=== PATIENT | female | born 1975 | race Caucasian/White ===

== ENCOUNTER 2016-05-01 17:21 | Emergency (ER) | payer MEDICAID ==
[2016-05-01] MEDS ORDERED: BENZONATATE 100 MG CAPSULE PO STA (17:39)
[2016-05-01] MEDS ORDERED: IPRATROPIUM/ALBUTEROL 3 ML NEB INH STA (17:39)
[2016-05-01] MEDS ORDERED: predniSONE 20 MG TABLET PO STA (17:39)
[2016-05-01] MEDS ORDERED: guaiFENesin/CODEINE 5 ML UDC PO STA (17:39)
[2016-05-01] MEDS ORDERED: IPRATROPIUM/ALBUTEROL 3 ML NEB INH ONE (17:48)
[2016-05-01] MEDS ORDERED: BENZONATATE 100 MG CAPSULE PO ONE (17:51)
[2016-05-01] MEDS ORDERED: guaiFENesin/CODEINE 5 ML UDC ONE (17:51)
[2016-05-01] MEDS ORDERED: predniSONE 20 MG TABLET ONE (17:51)
== END 2016-05-01 18:53 | disposition home or self-care (01) ==
DX: J45.901 Unspecified asthma with (acute) exacerbation (principal); J06.9 Acute upper respiratory infection, unspecified; B97.89 Other viral agents as the cause of diseases classified elsewhere; R03.0 Elevated blood-pressure reading, without diagnosis of hypertension
CPT/HCPCS: 71020; 87275; 87276; 94664; 99283; 99284; A9270; J7512; J7620

== ENCOUNTER 2016-06-29 15:40 | Emergency (ER) | payer MEDICAID ==
[2016-06-29] MEDS ORDERED: CARBAMIDE PEROXIDE 6.5% OTIC DROPS EACHEAR STA (16:05)
[2016-06-29] MEDS ORDERED: CARBAMIDE PEROXIDE 6.5% OTIC DROPS ONE (16:09)
== END 2016-06-29 18:10 | disposition home or self-care (01) ==
DX: H61.23 Impacted cerumen, bilateral (principal)

== ENCOUNTER 2016-11-01 13:11 | Outpatient (CLI) | payer MEDICAID | END 2016-11-01 13:12 | disposition home or self-care (01) | LOC: SC 13:11 | PROVIDERS: ATTEND Nurse Practitioner Family | DX: G47.33 Obstructive sleep apnea (adult) (pediatric) (principal) | CPT/HCPCS: 99212; 99213 ==

== ENCOUNTER 2017-01-17 15:43 | Emergency (ER) | payer MEDICAID ==
[2017-01-17 15:49] VITALS: BP 123/80
--- NOTE | 2017-01-17 16:41 | ED Physician Documentation ---
PD HPI URI - Stated complaint Stated Complaint: SOA - Chief complaint Chief Complaint: Resp - History obtained from History obtained from: Patient - History of Present Illness Timing - onset: How many days ago (4-5) Timing duration: Days Timing details: Gradual onset, Still present (worsening, with purulent sputum and increasing cough/wheeze.) Associated symptoms: Fever, Productive cough, Dyspnea. No: Hemoptysis, Chest pain Contributing factors: COPD / asthma. No: Sick contact, Travel, Immunocompromised Similar symptoms before: Diagnosis (bronchitis and asthma.) Recently seen: Not recently seen Review of Systems Constitutional: reports: Fever, Chills, Myalgias Nose: reports: Congestion Throat: denies: Sore throat Cardiac: denies: Chest pain / pressure Respiratory: reports: Dyspnea, Cough, Wheezing GI: reports: Diarrhea (mild). denies: Nausea, Vomiting Skin: denies: Rash, Lesions Neurologic: reports: Generalized weakness. 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, Tubal ligation HEENT: Tonsil/Adenoidectomy - Present Medications Home Medications: Ambulatory Orders Medication Instructions Recorded Confirmed Lisinopril 10 mg PO DAILY 12/18/13 06/29/16 Venlafaxine [Effexor] 37.5 mg PO DAILY 12/18/13 06/29/16 traZODone [Desyrel] 12/20/15 Albuterol Sulfate [Proventil Hfa 1 - 2 puffs IH Q4H PRN #1 05/01/16 Inhaler] hfa.aer.ad Albuterol 2.5 mg INH Q4H PRN #30 neb 01/17/17 Cetirizine [ZyrTEC] 10 mg DAILY 01/17/17 01/17/17 Dexamethasone [Decadron] 4 mg PO DAILY #5 tablet 01/17/17 Doxycycline Hyclate 100 mg PO BID #14 tablet 01/17/17 Nebulizer and Compressor [Portable 1 each MC QID #1 each 01/17/17 Nebulizer System] guaiFENesin/CODEINE [Robitussin AC] 10 ml PO Q6H PRN #240 ml 01/17/17 - Allergies Allergies/Adverse Reactions: Allergies Allergy/AdvReac Type Severity Reaction Status Date / Time cefaclor [From Ceclor] Allergy Severe Edema Verified 01/17/17 15:49 methylergonovine maleate * Allergy Severe Respiratory Verified 01/17/17 15:49 [From Methergine] Latex, Natural Rubber Allergy Hives Verified 01/17/17 15:49 - Social History Does the pt smoke?: No Smoking Status: Never smoker Does the pt drink ETOH?: Yes Does the pt have substance abuse?: No - Immunizations Immunizations are current?: Yes - POLST Patient has POLST: No Results - Vitals Vitals: Oxygen O2 Source Room air - Rads (name of study) chest Radiology: Prelim report reviewed (no infiltrates nor acute process) PD MEDICAL DECISION MAKING - ED course Complexity details: re-evaluated patient (muxh improved with nebulizer. Likely viral but does have asthma and with purulent sputum, so higher suspicion for bacterial. ), considered differential, d/w patient Departure - Departure Disposition: 01 Home, Self Care Clinical Impression: Wheezing Upper respiratory tract infection Qualifiers: URI type: unspecified URI Qualified Code(s): J06.9 - Acute upper respiratory infection, unspecified Condition: Stable Record reviewed to determine appropriate education?: Yes Instructions: ED URI Viral W Wheezing Follow-Up: Azul Bullock MD [Primary Care Provider] - Prescriptions: Albuterol 2.5 mg INH Q4H PRN #30 neb PRN Reason: Wheezing Dexamethasone [Decadron] 4 mg PO DAILY #5 tablet Doxycycline Hyclate 100 mg PO BID #14 tablet guaiFENesin/CODEINE [Robitussin AC] 10 ml PO Q6H PRN #240 ml PRN Reason: Cough Nebulizer and Compressor [Portable Nebulizer System] 1 each MC QID #1 each Comments: Use your inhaler or see if he can get the nebulizer and use those 4 times a day plus extra doses if needed. He is a steroid Decadron daily for 5 more days. Add cough medicine if needed. This may still be viral but given the escalation of the symptoms now, with your history of asthma, would add some antibiotics in case of bacterial. Doxycycline twice daily for a week. Recheck if not improving over the next few days. Return sooner if worse again. Discharge Date/Time: 01/17/17 17:33
--- NOTE | 2017-01-17 16:50 | XRAY Preliminary Report ---
Exam: XR Chest 2 View PA/LAT IMPRESSION: No acute intrathoracic plain film abnormality. [facility] SITE ID: [id number]
--- NOTE | 2017-01-17 16:52 | XRAY Report ---
EXAM: CHEST RADIOGRAPHY EXAM DATE: 01/17/2017 04:17 PM. CLINICAL HISTORY: Congestion, short of breath. COMPARISON: None. TECHNIQUE: 2 views. FINDINGS: Lungs/Pleura: No focal opacities evident. No pleural effusion. No pneumothorax. Normal volumes. Mediastinum: Heart and mediastinal contours are unremarkable. Other: None. IMPRESSION: No acute intrathoracic plain film abnormality. [facility] Referring Provider Line: [phone] SITE ID: [id number]
[2017-01-17] MEDS: guaiFENesin/CODEINE 5 ML UDC PO STA (17:03)
[2017-01-17] MEDS: DEXAMETHASONE 10 MG/ML VIAL PO STA (17:03)
[2017-01-17] MEDS ORDERED: DEXAMETHASONE 10 MG/ML VIAL ONE (17:05)
[2017-01-17] MEDS ORDERED: guaiFENesin/CODEINE 5 ML UDC ONE ×2 (17:05→17:09)
[2017-01-17] MEDS ORDERED: ALBUTEROL NEB 2.5 MG/3 ML INH ONE (17:11)
[2017-01-17] MEDS: ALBUTEROL NEB 2.5 MG/3 ML INH STA (17:16)
== END 2017-01-17 17:33 | disposition home or self-care (01) ==
LOC: ED 15:43
DX: R06.2 Wheezing (principal); J06.9 Acute upper respiratory infection, unspecified
CPT/HCPCS: 71020; 94640; 94664; 99283; 99284

== ENCOUNTER 2017-07-12 13:54 | Emergency (ER) | payer MEDICAID ==
--- NOTE | 2017-07-12 15:11 | ED Physician Documentation ---
PD HPI DYSPNEA - Stated complaint Stated Complaint: DIFFICUTLY BREATHING/COUGH - Chief complaint Chief Complaint: Resp - History obtained from History obtained from: Patient - History of Present Illness Timing - onset: How many days ago (few) Timing - onset during: Light activity Timing - duration: Days (few) Timing - details: Gradual onset, Still present, Waxing and waning Inciting event(s): URI Worsened by: Exertion, Coughing Associated symptoms: Cough, Wheezing. No: Fever, Hemoptysis, Palpitations Similar symptoms before: Diagnosis (asthma, that will exacerbate with URIs.) Review of Systems Constitutional: reports: Chills, Myalgias. 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 HEENT: Tonsil/Adenoidectomy - Present Medications Home Medications: Ambulatory Orders Medication Instructions Recorded Confirmed Lisinopril 10 mg PO DAILY 12/18/13 06/29/16 Venlafaxine [Effexor] 37.5 mg PO DAILY 12/18/13 06/29/16 traZODone [Desyrel] 12/20/15 Albuterol Sulfate [Proventil Hfa 1 - 2 puffs IH Q4H PRN #1 05/01/16 Inhaler] hfa.aer.ad Albuterol 2.5 mg INH Q4H PRN #30 neb 01/17/17 Cetirizine [ZyrTEC] 10 mg DAILY 01/17/17 01/17/17 Dexamethasone [Decadron] 4 mg PO DAILY #5 tablet 01/17/17 Doxycycline Hyclate 100 mg PO BID #14 tablet 01/17/17 Nebulizer and Compressor [Portable 1 each MC QID #1 each 01/17/17 Nebulizer System] guaiFENesin/CODEINE [Robitussin AC] 10 ml PO Q6H PRN #240 ml 01/17/17 Benzonatate [Tessalon] 100 mg PO TID PRN #25 capsule 07/12/17 Dexamethasone [Decadron] 4 mg PO DAILY #5 tablet 07/12/17 Doxycycline Monohydrate 100 mg PO BID #14 tablet 07/12/17 HYDROcod/ACETAM 5/325 [[place] 5/325] 1 tab PO Q6H PRN #15 tablet 07/12/17 - Allergies Allergies/Adverse Reactions: Allergies Allergy/AdvReac Type Severity Reaction Status Date / Time cefaclor [From Ceclor] Allergy Severe Edema Verified 01/17/17 15:49 methylergonovine maleate * Allergy Severe Respiratory Verified 01/17/17 15:49 [From Methergine] Latex, Natural Rubber Allergy Hives Verified 01/17/17 15:49 - Social History Does the pt smoke?: No Smoking Status: Never smoker Does the pt drink ETOH?: Yes Does the pt have substance abuse?: No - Immunizations Immunizations are current?: Yes - POLST Patient has POLST: No PD ED PE NORMAL - Vitals Vital signs reviewed: Yes - General General: Alert and oriented X 3, No acute distress, Well developed/nourished - HEENT HEENT: Moist mucous membranes, Pharynx benign, Dentition benign - Neck Neck: Supple, no meningeal sign, No adenopathy - Cardiac Cardiac: RRR, No murmur - Respiratory Respiratory: No respiratory distress. No: Clear bilaterally (diffuse exp wheezing, mild at this time. ) - Abdomen Abdomen: Normal bowel sounds, Soft - Derm Derm: Normal color, Warm and dry - Extremities Extremities: No tenderness to palpate, Normal ROM s pain, No edema, No calf tenderness / cord - Neuro Neuro: Alert and oriented X 3, No motor deficit, Normal speech Results - Vitals Vitals: Oxygen O2 Source Room air - Labs Labs: Laboratory Tests 07/12/17 14:49 Influenza A (Rapid) Negative Influenza B (Rapid) Negative Influenza Types A,B Ag - PD MEDICAL DECISION MAKING - ED course Complexity details: reviewed old records, considered differential, d/w patient Departure - Departure Disposition: 01 Home, Self Care Clinical Impression: Upper respiratory tract infection Qualifiers: URI type: unspecified URI Qualified Code(s): J06.9 - Acute upper respiratory infection, unspecified Asthma exacerbation Qualifiers: Asthma severity: mild Asthma persistence: intermittent Qualified Code(s): J45.21 - Mild intermittent asthma with (acute) exacerbation Condition: Stable Record reviewed to determine appropriate education?: Yes Instructions: ED URI Viral W Wheezing Follow-Up: Azul Bullock MD [Primary Care Provider] - Prescriptions: Benzonatate [Tessalon] 100 mg PO TID PRN #25 capsule PRN Reason: Cough Dexamethasone [Decadron] 4 mg PO DAILY #5 tablet Doxycycline Monohydrate 100 mg PO BID #14 tablet HYDROcod/ACETAM 5/325 [[place] 5/325] 1 tab PO Q6H PRN #15 tablet PRN Reason: Pain Comments: Continue your nebulizer at home 4 times a day for the next several days and then as needed. Decadron steroid anti-inflammatory for 5 more days. Doxycycline twice daily antibiotic. This may most likely be viral but given your history of asthma and exacerbation of it, the medical literature suggests he will have more prolonged improvement with antibiotics as well. Tessalon if needed for cough. Add hydrocodone for cough and pain as needed. Recheck if not improving over the next few days. Discharge Date/Time: 07/12/17 15:41
[2017-07-12] MEDS ORDERED: DEXAMETHASONE 10 MG/ML VIAL PO STA (15:23)
[2017-07-12] MEDS ORDERED: BENZONATATE 100 MG CAPSULE PO STA (15:23)
[2017-07-12 15:42] VITALS: BP 149/96
== END 2017-07-12 15:41 | disposition home or self-care (01) ==
LOC: ED 13:54
DX: J06.9 Acute upper respiratory infection, unspecified (principal); J45.21 Mild intermittent asthma with (acute) exacerbation
CPT/HCPCS: 87275; 87276; 99283; A9270

== ENCOUNTER 2017-12-09 10:09 | Observation (INO) | payer MEDICAID ==
[2017-12-09 10:52] LABS: BASOPHILS % (AUTO) 0.4 %; EOSINOPHILS # (AUTO) 0.1 10^3/uL (0.0-0.7); EOSINOPHILS % (AUTO) 1.5 %; HGB - HEMOGLOBIN 13.6 g/dL (12.0-16.0); LYMPHOCYTES # (AUTO) 1.4 10^3/uL (1.5-3.5); LYMPHOCYTES % (AUTO) 21.1 %; MEAN CORPUSCULAR HEMOGLOBIN 27.7 pg (27.0-31.0); MEAN CORPUSCULAR HGB CONC 34.2 g/dL (32.0-36.0); MEAN PLATELET VOLUME 7.9 fL (7.9-10.8); MONOCYTES # (AUTO) 0.9 10^3/uL (0.0-1.0); MONOCYTES % (AUTO) 13.2 %; NEUTROPHILS # (AUTO) 4.3 10^3/uL (1.5-6.6); NEUTROPHILS % (AUTO) 63.8 %; PLT - PLATELET COUNT 242 10^3/uL (130-450); RED BLOOD COUNT 4.89 10^6/uL (4.20-5.40); RED CELL DISTRIBUTION WIDTH 14.3 % (12.0-15.0); WHITE BLOOD COUNT 6.7 x10^3/uL (4.8-10.8)
[2017-12-09 11:05] LABS: ALBUMIN 3.9 g/dL (3.2-5.5); ALBUMIN/GLOBULIN RATIO 1.3 (1.0-2.2); BILIRUBIN,TOTAL 0.6 mg/dL (0.2-1.0); CALCIUM 8.7 mg/dL (8.5-10.3); CREATININE 0.7 mg/dL (0.4-1.0); TOTAL PROTEIN 6.9 g/dL (6.7-8.2)
[2017-12-09 11:22] LABS: BILIRUBIN,URINE NEGATIVE (NEGATIVE); GLUCOSE, URINE (UA) 100 mg/dL (NEGATIVE); KETONES,URINE (UA) NEGATIVE (NEGATIVE); LEUKOCYTE ESTERASE, URINE MODERATE (NEGATIVE); NITRITE,URINE NEGATIVE (NEGATIVE); OCCULT BLOOD,URINE TRACE-LYSE (NEGATIVE); PROTEIN,URINE NEGATIVE (NEGATIVE); UROBILINOGEN,URINE 0.2 (NORMAL) E.U./dL (NORMAL)
[2017-12-09 11:23] LABS: CLARITY,URINE HAZY (CLEAR)
[2017-12-09 11:24] LABS: HCG UR QUAL NEGATIVE
--- NOTE | 2017-12-09 11:29 | ED Physician Documentation ---
PD HPI NVD - Stated complaint Stated Complaint: AB PX/NAUSEA - Chief complaint Chief Complaint: Abd Pain - History obtained from History obtained from: Patient - History of Present Illness Timing - onset: How many weeks ago (1) Timing - duration: Weeks (1) Timing - details: Gradual onset, Still present, Waxing and waning Associated symptoms: Abdominal pain (upper abdomen), Loss of appetite. No: Fever, Chest pain, Hematemesis, Melena, Dizzy (but feeling lightheaded with standing), Near syncope / syncope, Dysuria Contributing factors: No: Sick contact, Bad food, Travel, Recent antibiotics, Alcohol use Improved by: No: Eating, Vomiting Worsened by: Eating, Palpation. No: Breathing Similar symptoms before: Has not had sx before Recently seen: Not recently seen Review of Systems Constitutional: reports: Myalgias. denies: Fever, Chills Nose: denies: Rhinorrhea / runny nose, Congestion Throat: denies: Sore throat Respiratory: reports: Dyspnea (mild baseline). denies: Cough GI: reports: Abdominal Pain, Nausea, Vomiting, Diarrhea (loose stools, which she says were dark at times). denies: Constipation : denies: Dysuria, Frequency Skin: denies: Rash, Lesions Neurologic: reports: Generalized weakness. 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 HEENT: Tonsil/Adenoidectomy - Present Medications Home Medications: Ambulatory Orders Medication Instructions Recorded Confirmed Lisinopril 10 mg PO DAILY 12/18/13 06/29/16 Venlafaxine [Effexor] 37.5 mg PO DAILY 12/18/13 06/29/16 traZODone [Desyrel] 12/20/15 Albuterol Sulfate [Proventil Hfa 1 - 2 puffs IH Q4H PRN #1 05/01/16 Inhaler] hfa.aer.ad Albuterol 2.5 mg INH Q4H PRN #30 neb 01/17/17 Cetirizine [ZyrTEC] 10 mg DAILY 01/17/17 01/17/17 Nebulizer and Compressor [Portable 1 each MC QID #1 each 01/17/17 Nebulizer System] HYDROcod/ACETAM 5/325 [[place] 5/325] 1 tab PO Q6H PRN #15 tablet 07/12/17 - Allergies Allergies/Adverse Reactions: Allergies Allergy/AdvReac Type Severity Reaction Status Date / Time cefaclor [From Ceclor] Allergy Severe Edema Verified 01/17/17 15:49 methylergonovine maleate * Allergy Severe Respiratory Verified 01/17/17 15:49 [From Methergine] Latex, Natural Rubber Allergy Hives Verified 12/09/17 10:17 - Social History Does the pt smoke?: No Smoking Status: Never smoker Does the pt drink ETOH?: Yes Does the pt have substance abuse?: No - Family History Family history: reports: Non contributory - Immunizations Immunizations are current?: Yes - POLST Patient has POLST: No PD ED PE NORMAL - Vitals Vital signs reviewed: Yes - General General: Alert and oriented X 3, Well developed/nourished, Other (appears in pain) - HEENT HEENT: PERRL (nonicteric), Pharynx benign - Neck Neck: Supple, no meningeal sign, No adenopathy - Cardiac Cardiac: RRR, No murmur - Respiratory Respiratory: Clear bilaterally - Abdomen Abdomen: Normal bowel sounds, Soft, Non distended, No organomegaly, Other ( obese. Nondistended. Tender in upper abd central mainly. Local guarding. No percussion nor rebound tenderness. ) - Female Female : Deferred - Rectal Rectal: Deferred - Back Back: No CVA TTP - Derm Derm: Normal color - Extremities Extremities: No deformity, No tenderness to palpate, Normal ROM s pain, No edema , No calf tenderness / cord - Neuro Neuro: Alert and oriented X 3, No motor deficit, Normal speech - Psych Psych: Normal mood, Normal affect Results - Vitals Vitals: Vital Signs - 24 hr 12/09/17 12/09/17 12/09/17 10:15 12:29 14:57 Temperature 36.1 C L Heart Rate 83 60 64 Respiratory 20 15 15 Rate Blood Pressure 133/92 H 133/76 H 120/57 L O2 Saturation 96 98 98 12/09/17 16:06 Temperature Heart Rate 66 Respiratory 18 Rate Blood Pressure 97/57 L O2 Saturation 96 Oxygen O2 Source Room air - Labs Labs: Laboratory Tests 12/09/17 12/09/17 12/09/17 10:40 10:40 11:14 WBC 6.7 RBC 4.89 Hgb 13.6 Hct 39.6 MCV 81.0 MCH 27.7 MCHC 34.2 RDW 14.3 Plt Count 242 MPV 7.9 Neut # (Auto) 4.3 Lymph # (Auto) 1.4 L [place] # (Auto) 0.9 Eos # (Auto) 0.1 Baso # (Auto) 0.0 Absolute Nucleated RBC 0.00 Nucleated RBC % 0.0 Sodium 135 Potassium 3.8 Chloride 103 Carbon Dioxide 25 Anion Gap 7.0 BUN 6 Creatinine 0.7 Estimated GFR (MDRD) 91 Glucose 98 Calcium 8.7 Total Bilirubin 0.6 AST 27 ALT 37 Alkaline Phosphatase 50 Total Protein 6.9 Albumin 3.9 Globulin 3.0 Albumin/Globulin Ratio 1.3 Lipase 23 Urine Color YELLOW Urine Clarity HAZY Urine pH 6.0 Ur Specific [place] <=1.005 Urine Protein NEGATIVE Urine Glucose (UA) 100 H Urine Ketones NEGATIVE Urine Occult Blood TRACE-LYSE Urine Nitrite NEGATIVE Urine Bilirubin NEGATIVE Urine Urobilinogen 0.2 (NORMAL) Ur Leukocyte Esterase MODERATE H Urine RBC 0-5 Urine WBC 6-10 H Ur Squamous Epith Cells MANY Squamous H Urine Bacteria Moderate H Ur Microscopic Review INDICATED Urine Culture Comments NOT INDICATED Urine HCG, Qual NEGATIVE - Rads (name of study) abd/pelvic CT Radiology: Prelim report reviewed (no acute process seen) PD MEDICAL DECISION MAKING - ED course Complexity details: reviewed results, re-evaluated patient (hurting recurrently after meds wear off, with pain severe again. Labs and CT are good, with symptoms triggered by eating for the past week, so sounds like gastritis/ulcer. Not able to tolerate PO here without hurting/nausea, so will talk with hospitalist. ), considered differential (Patient has upper abdominal pain, with nausea and vomiting for a week. She has had some loose stool which she says is dark at times. She has had a previous gallbladder removal. Will check for liver and pancreatic enzymes by blood tests. Will target medications for gastritis. She is having quite a bit of abdominal tenderness and will get a CT scan to ensure no signs of perforation or other problems such as transverse colon process etc.), d/w patient - Sepsis Event Vital Signs: Vital Signs - 24 hr 12/09/17 12/09/17 12/09/17 10:15 12:29 14:57 Temperature 36.1 C L Heart Rate 83 60 64 Respiratory 20 15 15 Rate Blood Pressure 133/92 H 133/76 H 120/57 L O2 Saturation 96 98 98 12/09/17 16:06 Temperature Heart Rate 66 Respiratory 18 Rate Blood Pressure 97/57 L O2 Saturation 96 Oxygen O2 Source Room air Departure - Departure Disposition: ED Place in Observation Clinical Impression: Intractable epigastric abdominal pain Vomiting Qualifiers: Vomiting type: unspecified Vomiting Intractability: non-intractable Nausea presence: with nausea Qualified Code(s): R11.2 - Nausea with vomiting, unspecified Gastritis, acute Qualifiers: Gastritis type: unspecified gastritis Gastritis bleeding: without bleeding Qualified Code(s): K29.00 - Acute gastritis without bleeding Condition: Stable Record reviewed to determine appropriate education?: Yes
[2017-12-09 11:34] LABS: BACTERIA,URINE Moderate /HPF (None Seen); RBC,URINE 0-5 /HPF (0-5); SQUAMOUS EPITHELIAL CELL,UR MANY Squamous (<= Few)
[2017-12-09] MEDS ORDERED: SODIUM CHLORIDE 0.9% 1,000 ML IV ONE ×2 (12:07→16:27)
[2017-12-09] MEDS ORDERED: MORPHINE 10 MG/ML VIAL IVP STA ×3 (12:08→16:27)
[2017-12-09] MEDS ORDERED: FAMOTIDINE 20 MG/50 ML 50 ML IV ONE (12:08)
[2017-12-09] MEDS ORDERED: MAG HYDROX/AL HYDROX/SIMETH 30 ML UDC PO STA ×2 (12:08→14:08)
[2017-12-09] MEDS ORDERED: ONDANSETRON 4 MG/2 ML VIAL IVP STA (12:08)
[2017-12-09] MEDS ORDERED: IOPAMIDOL-300 100 ML VIAL ONE (12:41)
[2017-12-09] MEDS ORDERED: IOPAMIDOL-300 100 ML VIAL IVP ONE (12:55)
--- NOTE | 2017-12-09 13:56 | CT Report ---
Reason: upper abd pain for a week Procedure Date: 12/09/2017 Accession Number: [id number] / [id number] Procedure: CT - Abdomen/Pelvis W/ CPT Code: FULL RESULT: EXAM: CT ABDOMEN AND PELVIS EXAM DATE: 12/09/2017 12:58 PM. CLINICAL HISTORY: Upper abdominal pain for one week. COMPARISONS: None. TECHNIQUE: Routine helical CT imaging was performed through the abdomen and pelvis. IV contrast: 100 cc Isovue-300. Enteric contrast: No. Reconstructions: Coronal and sagittal. In accordance with CT protocol optimization, one or more of the following dose reduction techniques were utilized for this exam: automated exposure control, adjustment of mA and/or KV based on patient size, or use of iterative reconstructive technique. FINDINGS: Lung Bases: Unremarkable. Liver: Mildly decreased density of the liver diffusely without focal intrahepatic lesion. Gallbladder/Bile Ducts: Status post cholecystectomy. Spleen: Normal. Pancreas: Normal. Adrenal Glands: Normal. Kidneys: Normal. No masses or hydronephrosis. Peritoneal Cavity/Bowel: The stomach is unremarkable. There are no dilated loops of large or small intestine. The appendix is seen and is unremarkable. Pelvic Organs: Normal. The bladder and visualized pelvic organs are within normal limits. Vasculature: No aneurysms or other significant abnormality. Bones: Degenerative disk disease L5-S1. Other: None. IMPRESSION: 1. No dilated bowel or focal inflammation. 2. Fatty infiltration of the liver. [facility]
[2017-12-09] MEDS ORDERED: LIDOCAINE VISCOUS 2% 15 ML UDC MM STA (14:08)
[2017-12-09] MEDS ORDERED: PANTOPRAZOLE 40 MG VIAL IVP STA (15:36)
[2017-12-09] MEDS ORDERED: PROMETHAZINE 25 MG/1 ML VIAL IM PRN (16:56)
[2017-12-09] MEDS ORDERED: PROCHLORPERAZINE 10 MG/2 ML VIAL IVP PRN (16:56)
[2017-12-09] MEDS ORDERED: oxyCODONE 5 MG TABLET PO PRN ×2 (16:56)
[2017-12-09] MEDS ORDERED: ACETAMINOPHEN 325 MG TABLET PO PRN (16:56)
[2017-12-09] MEDS ORDERED: MORPHINE 2 MG/ML SYRINGE IVP PRN (16:56)
[2017-12-09] MEDS ORDERED: TEMAZEPAM 15 MG CAPSULE PO PRN (16:56)
[2017-12-09] MEDS ORDERED: ONDANSETRON 4 MG/2 ML VIAL IVP PRN (16:56)
--- NOTE | 2017-12-09 17:17 | HISTORY & PHYSICAL EXAMINATION ---
Chief Complaint - Chief Complaint Chief Complaint: Abdominal Pain History of Present Illness - Admitted From Admitted From:: Emergency department - History Obtained From Records Reviewed: Yes History obtained from: Patient Exam Limitations: None - History of Present Illness HPI Comment/Other: Patient is a 42-year-old female with a past medical history significant for obesity, hypertension, asthma, irritable bowel syndrome, hernia and anxiety who presented to the emergency department with a chief complaint of abdominal pain. The patient states that she has been having upper abdominal pain for the last week. She states that it has become gradually worse over this week. She states that the pain occurs whenever she eats anything. She states that after the pain she immediately has diarrhea about 10 minutes later. She states that she has barely been able to get any sleep over the last week. She states that she has tried taking Percocet for the pain with no relief. She states that she has been nauseated but has not had any episodes of vomiting. She has tried taking Tums and ranitidine without any improvement of the pain or the nausea. The patient states that her diarrhea has been occurring off and on for the last year. She states that she did see her primary care physician about 2 weeks ago regarding her symptoms of diarrhea and was told she might have IBS and started on any medication. The patient states that her stools are loose and at times are watery. She states that they are dark but not black. She denies any blood in the stools. The patient states that most of the time the abdominal pain would only come on when she ate but the last couple of days it has become more persistent. She states that today when she came in the pain was an 8 out of 10 and located in the epigastric area radiating all the way across her upper abdomen. She states it was associated with nausea. She denies any chest pain or shortness of air. She denies any fevers or chills but does state that she has been feeling hot and sweaty over the last week. She denies any sick contacts in the last week. Patient denies any headaches, blurred vision, runny nose, sore throat, nasal congestion, difficulty swallowing, palpitations, orthopnea, PND, increased lower extremity swelling, constipation, urinary urgency, urinary frequency, dysuria, joint pain, muscle aches, back pain, neck stiffness, recent unintentional weight loss, changes in her appetite, skin rash, skin changes, polyuria, polydipsia, night sweats or any focal neurologic deficits. On presentation to the emergency department the patient was afebrile and vital signs were all within normal limits. The patient underwent routine labs which showed no leukocytosis but a slight lymphopenia. The patient's electrolytes were all within normal limits. The patient's urinalysis showed moderate leukocytes with some WBCs but there were many squamous cells likely a poor specimen. The patient did undergo a CT of her abdomen and pelvis. The CT revealed no dilated bowel or focal inflammation. There was evidence of fatty infiltration of the liver. In the emergency department the patient received 2 L of IV fluid, IV Protonix, IV Zofran, 3 doses of IV morphine, a GI cocktail, IV Pepcid and Mylanta with only mild relief of her symptoms. The patient continued to have persistent pain and nausea therefore she was placed in observation for further treatment. 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 Social History Notes: Patient was born in [place] and moved would be [place] 22 years ago. She lives in [place] with her . They have 2 children. She has a daughter who is 18 who still lives with them. She works for a [employer]. She does not smoke cigarettes and rarely drinks alcohol. She does smoke marijuana about 4 times a week. - POLST Patient has POLST: No POLST Status: Full Code Meds/Allgy - Home Medications Home Medications: Ambulatory Orders Medication Instructions Recorded Confirmed Lisinopril 10 mg PO DAILY 12/18/13 06/29/16 Venlafaxine [Effexor] 37.5 mg PO DAILY 12/18/13 06/29/16 traZODone [Desyrel] 12/20/15 Albuterol Sulfate [Proventil Hfa 1 - 2 puffs IH Q4H PRN #1 05/01/16 Inhaler] hfa.aer.ad Albuterol 2.5 mg INH Q4H PRN #30 neb 01/17/17 Cetirizine [ZyrTEC] 10 mg DAILY 01/17/17 01/17/17 Nebulizer and Compressor [Portable 1 each MC QID #1 each 01/17/17 Nebulizer System] HYDROcod/ACETAM 5/325 [[place] 5/325] 1 tab PO Q6H PRN #15 tablet 07/12/17 - Allergies Allergies/Adverse Reactions: Allergies Allergy/AdvReac Type Severity Reaction Status Date / Time cefaclor [From Ceclor] Allergy Severe Edema Verified 01/17/17 15:49 methylergonovine maleate * Allergy Severe Respiratory Verified 01/17/17 15:49 [From Methergine] Latex, Natural Rubber Allergy Hives Verified 12/09/17 10:17 Review of Systems - Other Findings Other Findings: A comprehensive review of systems was performed the pertinent positives and negatives are stated above in the HPI and the remainder of the review of systems is negative. Exam - Vital Signs Reviewed Vital Signs: Yes Vital Signs: Vital Signs x48h Temp Pulse Resp BP Pulse Ox 12/09/17 16:06 66 18 97/57 L 96 12/09/17 14:57 64 15 120/57 L 98 12/09/17 12:29 60 15 133/76 H 98 12/09/17 10:15 36.1 C L 83 20 133/92 H 96 - Physical Exam General Appearance: positive: Alert, Mild distress (Having abdominal pain, grimacing), Other (Obese) Eyes Bilateral: positive: Normal inspection, PERRL, EOMI, No lid inflammation, Conjunctivae nml, No scleral icterus ENT: positive: ENT inspection nml, Pharynx nml, Dry mucous membranes. negative : Purulent nasal drainage, Pharyngeal erythema, Oral lesions Neck: positive: Nml inspection, Thyroid nml, No JVD, Trachea midline. negative : Thyromegaly, Lymphadenopathy (R), Lymphadenopathy (L), Stiff neck, Carotid bruit, Tracheal deviation Respiratory: positive: Chest non-tender, Wheezes (Scattered), Other (Decreased breath sounds). negative: Rales, Rhonchi Cardiovascular: positive: Regular rate & rhythm, No murmur, No gallop Peripheral Pulses: positive: 2+ Abdomen: positive: No organomegaly, Tenderness (Diffuse upper abdominal tenderness is worst in the epigastric area. Abdomen is soft without peritoneal signs), Abnml bowel sounds (Hyperactive). negative: Guarding, Rebound Back: positive: Nml inspection. negative: CVA tenderness (R), CVA tenderness (L ) Skin: positive: Color nml, No rash, Warm, Dry. negative: Cyanosis, Diaphoresis , Pallor Extremities: positive: Non-tender, Full ROM, Nml appearance, No pedal edema Neurologic/Psychiatric: positive: Oriented x3, CN's nml (2-12), Motor nml, Sensation nml, Mood/affect nml Conclusion/Plan - Problem List (1) Abdominal pain Conclusion/Plan: Patient presents with upper abdominal pain associated with nausea and diarrhea. Occurs when she eats but now occurring constantly and progressively worsening. Improved with Morphine and GI cocktail. CT abdomen negative. No fevers, no WBC and no electrolyte abnormalities. Patient seems to likely have gastritis or gastroenteritis Pain is uncontrolled despite 3 doses of morphine in the ER and patient still not able to tolerate anything PO secondary to pain and nausea. Placed in obs for symptom control. Plan: Place in obs IVFs NPO IV protonix Carafate PO QID GI cocktail QID IV antiemetics IV morphine Monitor Qualifiers: Abdominal location: upper abdomen, unspecified Qualified Code(s): R10.10 - Upper abdominal pain, unspecified (2) Diarrhea Conclusion/Plan: Patient has been having diarrhea with abdominal pain but diarrhea has been bothering her off and on for the last 1-2 years. She has been seeing her PCP regarding this symptom for sometime now and has been diagnosed with IBS. She was prescribed Bentyl for IBS 2 weeks ago with no significant relief. This diarrhea is likely secondary to IBS but could also be secondary to gastroenteritis. Plan: IVFs Continue Bentyl Imodium COnsider stool studies if patient spikes fever or has elevated WBC Qualifiers: Diarrhea type: unspecified type Qualified Code(s): R19.7 - Diarrhea, unspecified (3) Hypertension Conclusion/Plan: Patient has history of HTN and is on lisinopril at home BP is well controlled in ER to low normal Will continue patient on lisinopril for now Will monitor BP and titrate medication as needed. Qualifiers: Hypertension type: essential hypertension Qualified Code(s): I10 - Essential (primary) hypertension (4) Asthma Conclusion/Plan: Patient has history of asthma and uses a rescue inhaler at home. We will place the patient on albuterol nebs prn while she is hospitalized Monitor Qualifiers: Asthma severity: mild Asthma persistence: intermittent Asthma complication type: uncomplicated Qualified Code(s): J45.20 - Mild intermittent asthma, uncomplicated (5) Anxiety Conclusion/Plan: Patient has a history of anxiety and uses effexor at home She is currently stable Will continue home med (6) Obesity, morbid, BMI 40.0-49.9 Conclusion/Plan: Patient has morbid obesity with BMI of 42.6 Counselled about medical complications of obesity Patient advised to lose weight - Lab Results Lab results reviewed: Yes Fish Bones: 12/09/17 10:40 12/09/17 10:40 Other Lab Results: Laboratory Results WBC 6.7 x10^3/uL (4.8-10.8) 12/09/17 10:40 RBC 4.89 10^6/uL (4.20-5.40) 12/09/17 10:40 Hgb 13.6 g/dL (12.0-16.0) 12/09/17 10:40 Hct 39.6 % (37.0-47.0) 12/09/17 10:40 MCV 81.0 fL (81.0-99.0) 12/09/17 10:40 MCH 27.7 pg (27.0-31.0) 12/09/17 10:40 MCHC 34.2 g/dL (32.0-36.0) 12/09/17 10:40 RDW 14.3 % (12.0-15.0) 12/09/17 10:40 Plt Count 242 10^3/uL (130-450) 12/09/17 10:40 MPV 7.9 fL (7.9-10.8) 12/09/17 10:40 Neut # (Auto) 4.3 10^3/uL (1.5-6.6) 12/09/17 10:40 Lymph # (Auto) 1.4 10^3/uL (1.5-3.5) L 12/09/17 10:40 [place] # (Auto) 0.9 10^3/uL (0.0-1.0) 12/09/17 10:40 Eos # (Auto) 0.1 10^3/uL (0.0-0.7) 12/09/17 10:40 Baso # (Auto) 0.0 10^3/uL (0.0-0.1) 12/09/17 10:40 Absolute Nucleated RBC 0.00 x10^3/uL 12/09/17 10:40 Nucleated RBC % 0.0 /100WBC 12/09/17 10:40 Sodium 135 mmol/L (135-145) 12/09/17 10:40 Potassium 3.8 mmol/L (3.5-5.0) 12/09/17 10:40 Chloride 103 mmol/L (101-111) 12/09/17 10:40 Carbon Dioxide 25 mmol/L (21-32) 12/09/17 10:40 Anion Gap 7.0 (6-13) 12/09/17 10:40 BUN 6 mg/dL (6-20) 12/09/17 10:40 Creatinine 0.7 mg/dL (0.4-1.0) 12/09/17 10:40 Estimated GFR (MDRD) 91 (>89) 12/09/17 10:40 Glucose 98 mg/dL (70-100) 12/09/17 10:40 Calcium 8.7 mg/dL (8.5-10.3) 12/09/17 10:40 Total Bilirubin 0.6 mg/dL (0.2-1.0) 12/09/17 10:40 AST 27 IU/L (10-42) 12/09/17 10:40 ALT 37 IU/L (10-60) 12/09/17 10:40 Alkaline Phosphatase 50 IU/L (42-121) 12/09/17 10:40 Total Protein 6.9 g/dL (6.7-8.2) 12/09/17 10:40 Albumin 3.9 g/dL (3.2-5.5) 12/09/17 10:40 Globulin 3.0 g/dL (2.1-4.2) 12/09/17 10:40 Albumin/Globulin Ratio 1.3 (1.0-2.2) 12/09/17 10:40 Lipase 23 U/L (22-51) 12/09/17 10:40 Urine Color YELLOW 12/09/17 11:14 Urine Clarity HAZY (CLEAR) 12/09/17 11:14 Urine pH 6.0 PH (5.0-7.5) 12/09/17 11:14 Ur Specific [place] <=1.005 (1.002-1.030) 12/09/17 11:14 Urine Protein NEGATIVE mg/dL (NEGATIVE) 12/09/17 11:14 Urine Glucose (UA) 100 mg/dL (NEGATIVE) H 12/09/17 11:14 Urine Ketones NEGATIVE mg/dL (NEGATIVE) 12/09/17 11:14 Urine Occult Blood TRACE-LYSE (NEGATIVE) 12/09/17 11:14 Urine Nitrite NEGATIVE (NEGATIVE) 12/09/17 11:14 Urine Bilirubin NEGATIVE (NEGATIVE) 12/09/17 11:14 Urine Urobilinogen 0.2 (NORMAL) E.U./dL (NORMAL) 12/09/17 11:14 Ur Leukocyte Esterase MODERATE (NEGATIVE) H 12/09/17 11:14 Urine RBC 0-5 /HPF (0-5) 12/09/17 11:14 Urine WBC 6-10 /HPF (0-5) H 12/09/17 11:14 Ur Squamous Epith Cells MANY Squamous (<= Few) H 12/09/17 11:14 Urine Bacteria Moderate /HPF (None Seen) H 12/09/17 11:14 Ur Microscopic Review INDICATED 12/09/17 11:14 Urine Culture Comments NOT INDICATED 12/09/17 11:14 Urine HCG, Qual NEGATIVE 12/09/17 11:14 - Diagnostic Imaging Results Diagnostic Imaging Results: positive: Final report reviewed Diagnostic Imaging Results Comments: CT abdomen/pelvis Impression: 1. No dilated bowel or focal inflammation 2. Fatty infiltration of the liver. Core Measures - Anticipated LOS I expect patient to be DC'd or transferred within 96 hours.: Yes - DVT/VTE - Prophylaxis VTE/DVT Device ordered at admit?: Yes
[2017-12-09] MEDS ORDERED: LOPERAMIDE 2 MG CAPSULE PO PRN (17:40)
[2017-12-09] MEDS: PANTOPRAZOLE 40 MG VIAL IVP SCH (18:00)
[2017-12-09] MEDS: SODIUM CHLORIDE FLUSH 0.9% 10 ML SYRINGE IVP SCH (18:48)
[2017-12-09] MEDS: SODIUM CHLORIDE 0.9% 1,000 ML IV SCH (18:48)
[2017-12-09] MEDS: SUCRALFATE 1 GM/10 ML UDC PO SCH ×2 (18:49→21:00)
[2017-12-09] MEDS ORDERED: MAG HYDROX/AL HYDROX/SIMETH 30 ML UDC ONE (19:29)
[2017-12-09] MEDS ORDERED: LIDOCAINE VISCOUS 2% 15 ML UDC MM ONE (19:30)
[2017-12-09] MEDS: GI COCKTAIL 120 ML BOTTLE PO SCH ×2 (19:37→20:22)
[2017-12-09] MEDS: DICYCLOMINE 10 MG CAPSULE PO SCH (21:00)
[2017-12-10] MEDS: SODIUM CHLORIDE FLUSH 0.9% 10 ML SYRINGE IVP SCH ×2 (03:01→08:11)
[2017-12-10] MEDS: SODIUM CHLORIDE 0.9% 1,000 ML IV SCH (04:00)
[2017-12-10 05:58] LABS: BASOPHILS % (AUTO) 0.9 %; EOSINOPHILS # (AUTO) 0.1 10^3/uL (0.0-0.7); EOSINOPHILS % (AUTO) 2.6 %; HGB - HEMOGLOBIN 12.1 g/dL (12.0-16.0); LYMPHOCYTES # (AUTO) 1.6 10^3/uL (1.5-3.5); LYMPHOCYTES % (AUTO) 32.9 %; MEAN CORPUSCULAR HEMOGLOBIN 27.8 pg (27.0-31.0); MEAN CORPUSCULAR VOLUME 81.7 fL (81.0-99.0); MEAN PLATELET VOLUME 7.5 fL (7.9-10.8); MONOCYTES # (AUTO) 0.7 10^3/uL (0.0-1.0); MONOCYTES % (AUTO) 14.1 %; NEUTROPHILS # (AUTO) 2.5 10^3/uL (1.5-6.6); NEUTROPHILS % (AUTO) 49.5 %; PLT - PLATELET COUNT 204 10^3/uL (130-450); RED BLOOD COUNT 4.35 10^6/uL (4.20-5.40); RED CELL DISTRIBUTION WIDTH 14.4 % (12.0-15.0)
[2017-12-10] MEDS: SODIUM CHLORIDE FLUSH 0.9% 10 ML SYRINGE IVP PRN ×2 (06:09→06:14)
[2017-12-10] MEDS: PANTOPRAZOLE 40 MG VIAL IVP SCH (06:14)
[2017-12-10 06:21] LABS: ALBUMIN 3.2 g/dL (3.2-5.5); ALBUMIN/GLOBULIN RATIO 1.3 (1.0-2.2); BILIRUBIN,TOTAL 0.4 mg/dL (0.2-1.0); CALCIUM 8.1 mg/dL (8.5-10.3); CREATININE 0.6 mg/dL (0.4-1.0); MAGNESIUM 2.2 mg/dL (1.7-2.8); PHOSPHORUS 2.6 mg/dL (2.5-4.6); TOTAL PROTEIN 5.7 g/dL (6.7-8.2)
[2017-12-10] MEDS: SUCRALFATE 1 GM/10 ML UDC PO SCH (08:47)
[2017-12-10] MEDS: DICYCLOMINE 10 MG CAPSULE PO SCH (08:48)
[2017-12-10] MEDS ORDERED: POLYETHYLENE GLYCOL 3350 17 GM PACKET PO SCH (09:00)
[2017-12-10] MEDS ORDERED: LISINOPRIL 5 MG TABLET PO SCH (09:00)
[2017-12-10] MEDS ORDERED: VENLAFAXINE 37.5 MG TABLET PO SCH (09:00)
[2017-12-10] MEDS ORDERED: CETIRIZINE 10 MG TABLET PO SCH (09:00)
--- NOTE | 2017-12-10 09:15 | Discharge Plan ---
Discharge Plan Disposition: Home, Self Care Condition: Stable Prescriptions: Oxycodone HCl/Acetaminophen [Percocet 5-325 mg Tablet] 1 tab PO Q6HR PRN #24 tablet PRN Reason: Pain Ondansetron [Zofran Odt] 8 mg PO Q8HR PRN #30 tab.rapdis PRN Reason: Nausea / Vomiting Lidocaine HCl [Lidocaine HCl Viscous] 30 ml PO QID #1 solution Loperamide [Imodium] 2 mg PO QID PRN #20 capsule PRN Reason: Diarrhea Omeprazole 20 mg PO DAILY #30 tablet. Sucralfate [Carafate] 1 gm PO QID #60 tablet Diet: Regular (Full liquid for the next 3-4 days avoid acidic foods, fatty foods and spicy foods) Activity Restrictions: Activity as Tolerated Shower Restrictions: No Driving Restrictions: No Weight Bearing: Full Weight Additional Instructions or Follow Up instructions: You presented to the ER with abdominal pain. It appears that you had gastritis. You required IV fluid, antiemetics, GI cocktail, protonix and carafate overnight which seem to help resolve your symptoms. You will be discharged home with omeprazole, a GI cocktail, carafate and medication for pain and nausea. You should avoid acidic, spicy and fatty food. I recommend a full liquid diet for 3-4 days. You should follow up with your PCP and get an EGD in the next month. No Smoking: If you smoke, Please STOP! Call for help. Follow-up with: Azul Bullock MD [Primary Care Provider] -
[2017-12-10] MEDS: GI COCKTAIL 120 ML BOTTLE PO SCH (10:07)
[2017-12-10 10:39] VITALS: BP 123/68
--- NOTE | 2017-12-10 10:50 | DISCHARGE SUMMARY ---
Discharge Summary Admit Date: 12/09/17 Discharge Date: 12/10/17 Discharging Provider: Zak Swann MD Primary Care Provider: Azul Bullock MD Code Status: Attempt Resuscitation Condition at Discharge: Stable Discharge Disposition: 01 Home, Self Care - DIAGNOSES Admission Diagnoses: 1. Abdominal pain 2. Diarrhea 3. Hypertension 4. Asthma 5. Anxiety 6. Morbid obesity, BMI 40.0-49.9 Discharge Diagnoses with Status of Each Condition: 1. Gastritis: Improved 2. Irritable bowel syndrome: Stable 3. Hypertension: Stable 4. Asthma: Stable 5. Anxiety: Stable 6. Obesity, morbid, BMI 40.0-49.9: Stable - HPI History of Present Illness: Patient is a 42-year-old female with a past medical history significant for obesity, hypertension, asthma, irritable bowel syndrome, hernia and anxiety who presented to the emergency department with a chief complaint of abdominal pain. The patient states that she has been having upper abdominal pain for the last week. She states that it has become gradually worse over this week. She states that the pain occurs whenever she eats anything. She states that after the pain she immediately has diarrhea about 10 minutes later. She states that she has barely been able to get any sleep over the last week. She states that she has tried taking Percocet for the pain with no relief. She states that she has been nauseated but has not had any episodes of vomiting. She has tried taking Tums and ranitidine without any improvement of the pain or the nausea. The patient states that her diarrhea has been occurring off and on for the last year. She states that she did see her primary care physician about 2 weeks ago regarding her symptoms of diarrhea and was told she might have IBS and started on any medication. The patient states that her stools are loose and at times are watery. She states that they are dark but not black. She denies any blood in the stools. The patient states that most of the time the abdominal pain would only come on when she ate but the last couple of days it has become more persistent. She states that today when she came in the pain was an 8 out of 10 and located in the epigastric area radiating all the way across her upper abdomen. She states it was associated with nausea. She denies any chest pain or shortness of air. She denies any fevers or chills but does state that she has been feeling hot and sweaty over the last week. She denies any sick contacts in the last week. Patient denies any headaches, blurred vision, runny nose, sore throat, nasal congestion, difficulty swallowing, palpitations, orthopnea, PND, increased lower extremity swelling, constipation, urinary urgency, urinary frequency, dysuria, joint pain, muscle aches, back pain, neck stiffness, recent unintentional weight loss, changes in her appetite, skin rash, skin changes, polyuria, polydipsia, night sweats or any focal neurologic deficits. On presentation to the emergency department the patient was afebrile and vital signs were all within normal limits. The patient underwent routine labs which showed no leukocytosis but a slight lymphopenia. The patient's electrolytes were all within normal limits. The patient's urinalysis showed moderate leukocytes with some WBCs but there were many squamous cells likely a poor specimen. The patient did undergo a CT of her abdomen and pelvis. The CT revealed no dilated bowel or focal inflammation. There was evidence of fatty infiltration of the liver. In the emergency department the patient received 2 L of IV fluid, IV Protonix, IV Zofran, 3 doses of IV morphine, a GI cocktail, IV Pepcid and Mylanta with only mild relief of her symptoms. The patient continued to have persistent pain and nausea therefore she was placed in observation for further treatment. - HOSPITAL COURSE Hospital Course: Patient was placed in observation and placed on IV fluids, kept n.p.o., given IV Protonix, p.o. Carafate, GI cocktail, IV antiemetics and IV morphine. The patient states that her symptoms were much improved overnight and had completely resolved by the morning. She stated that the GI cocktail and Carafate helped her symptoms significantly. It appears the patient likely had gastritis which was the cause of her symptoms on presentation. The patient's abdominal pain and nausea was well controlled by the time of discharge. The patient had no diarrhea over the course of the night. It appears that the diarrhea is likely secondary to her irritable bowel syndrome. For her irritable bowel syndrome the patient will continue on her home medication. We did prescribe the patient oral omeprazole, oral Carafate, GI cocktail, Zofran and Percocet to go home with. The patient was advised to follow-up with her primary care physician as she should get a outpatient EGD at some point in the next few months. The patient was in stable condition at the time of discharge. - ALLERGIES Allergies/Adverse Reactions: Allergies Allergy/AdvReac Type Severity Reaction Status Date / Time cefaclor [From Ceclor] Allergy Severe Edema Verified 01/17/17 15:49 methylergonovine maleate * Allergy Severe Respiratory Verified 01/17/17 15:49 [From Methergine] Latex, Natural Rubber Allergy Hives Verified 12/09/17 10:17 - MEDICATIONS Home Medications: Ambulatory Orders Medication Instructions Recorded Confirmed Lisinopril 10 mg PO DAILY 12/18/13 06/29/16 Venlafaxine [Effexor] 37.5 mg PO DAILY 12/18/13 06/29/16 traZODone [Desyrel] 12/20/15 Albuterol Sulfate [Proventil Hfa 1 - 2 puffs IH Q4H PRN #1 05/01/16 Inhaler] hfa.aer.ad Albuterol 2.5 mg INH Q4H PRN #30 neb 01/17/17 Cetirizine [ZyrTEC] 10 mg DAILY 01/17/17 01/17/17 Nebulizer and Compressor [Portable 1 each MC QID #1 each 01/17/17 Nebulizer System] HYDROcod/ACETAM 5/325 [[place] 5/325] 1 tab PO Q6H PRN #15 tablet 07/12/17 Lidocaine HCl [Lidocaine HCl 30 ml PO QID #1 solution 12/10/17 Viscous] Loperamide [Imodium] 2 mg PO QID PRN #20 capsule 12/10/17 Omeprazole 20 mg PO DAILY #30 tablet. 12/10/17 Ondansetron [Zofran Odt] 8 mg PO Q8HR PRN #30 tab.rapdis 12/10/17 Oxycodone HCl/Acetaminophen 1 tab PO Q6HR PRN #24 tablet 12/10/17 [Percocet 5-325 mg Tablet] Sucralfate [Carafate] 1 gm PO QID #60 tablet 12/10/17 - PHYSICAL EXAM AT DISCHARGE General Appearance: positive: No acute distress, Alert, Other (obese) Eyes Bilateral: positive: Normal inspection, PERRL, EOMI, No lid inflammation, Conjunctivae nml, No scleral icterus ENT: positive: ENT inspection nml, Pharynx nml, No signs of dehydration. negative: Purulent nasal drainage, Pharyngeal erythema, Oral lesions Neck: positive: Nml inspection, Thyroid nml, No JVD, Trachea midline. negative : Lymphadenopathy (R), Lymphadenopathy (L), Carotid bruit, Tracheal deviation Respiratory: positive: Chest non-tender, No respiratory distress, Breath sounds nml. negative: Wheezes, Rales, Rhonchi Cardiovascular: positive: Regular rate & rhythm, No murmur, No gallop Peripheral Pulses: positive: 2+ Abdomen: positive: No organomegaly, Nml bowel sounds, No distention, Tenderness (Mild tenderness, diffuse, soft, no peritoneal signs). negative: Guarding, Rebound, Hepatomegaly Back: positive: Nml inspection. negative: CVA tenderness (R), CVA tenderness (L ) Skin: positive: Color nml, No rash, Warm. negative: Cyanosis, Diaphoresis, Pallor Extremities: positive: Non-tender, Full ROM, Nml appearance, No pedal edema Neurologic/Psychiatric: positive: Oriented x3, CN's nml (2-12), Motor nml, Sensation nml, Mood/affect nml - LABS Result Diagrams: 12/10/17 05:50 12/10/17 05:50 Other Lab Results: Laboratory Results WBC 5.0 x10^3/uL (4.8-10.8) 12/10/17 05:50 RBC 4.35 10^6/uL (4.20-5.40) 12/10/17 05:50 Hgb 12.1 g/dL (12.0-16.0) 12/10/17 05:50 Hct 35.6 % (37.0-47.0) L 12/10/17 05:50 MCV 81.7 fL (81.0-99.0) 12/10/17 05:50 MCH 27.8 pg (27.0-31.0) 12/10/17 05:50 MCHC 34.0 g/dL (32.0-36.0) 12/10/17 05:50 RDW 14.4 % (12.0-15.0) 12/10/17 05:50 Plt Count 204 10^3/uL (130-450) 12/10/17 05:50 MPV 7.5 fL (7.9-10.8) L 12/10/17 05:50 Neut # (Auto) 2.5 10^3/uL (1.5-6.6) 12/10/17 05:50 Lymph # (Auto) 1.6 10^3/uL (1.5-3.5) 12/10/17 05:50 [place] # (Auto) 0.7 10^3/uL (0.0-1.0) 12/10/17 05:50 Eos # (Auto) 0.1 10^3/uL (0.0-0.7) 12/10/17 05:50 Baso # (Auto) 0.0 10^3/uL (0.0-0.1) 12/10/17 05:50 Absolute Nucleated RBC 0.01 x10^3/uL 12/10/17 05:50 Nucleated RBC % 0.1 /100WBC 12/10/17 05:50 Sodium 137 mmol/L (135-145) 12/10/17 05:50 Potassium 3.6 mmol/L (3.5-5.0) 12/10/17 05:50 Chloride 106 mmol/L (101-111) 12/10/17 05:50 Carbon Dioxide 25 mmol/L (21-32) 12/10/17 05:50 Anion Gap 6.0 (6-13) 12/10/17 05:50 BUN 6 mg/dL (6-20) 12/10/17 05:50 Creatinine 0.6 mg/dL (0.4-1.0) 12/10/17 05:50 Estimated GFR (MDRD) 109 (>89) 12/10/17 05:50 Glucose 105 mg/dL (70-100) H 12/10/17 05:50 Lactic Acid 0.6 mmol/L (0.5-2.2) 12/10/17 05:50 Calcium 8.1 mg/dL (8.5-10.3) L 12/10/17 05:50 Phosphorus 2.6 mg/dL (2.5-4.6) 12/10/17 05:50 Magnesium 2.2 mg/dL (1.7-2.8) 12/10/17 05:50 Total Bilirubin 0.4 mg/dL (0.2-1.0) 12/10/17 05:50 AST 72 IU/L (10-42) H 12/10/17 05:50 ALT 84 IU/L (10-60) H 12/10/17 05:50 Alkaline Phosphatase 59 IU/L (42-121) 12/10/17 05:50 Total Protein 5.7 g/dL (6.7-8.2) L 12/10/17 05:50 Albumin 3.2 g/dL (3.2-5.5) 12/10/17 05:50 Globulin 2.5 g/dL (2.1-4.2) 12/10/17 05:50 Albumin/Globulin Ratio 1.3 (1.0-2.2) 12/10/17 05:50 Lipase 23 U/L (22-51) 12/09/17 10:40 Urine Color YELLOW 12/09/17 11:14 Urine Clarity HAZY (CLEAR) 12/09/17 11:14 Urine pH 6.0 PH (5.0-7.5) 12/09/17 11:14 Ur Specific [place] <=1.005 (1.002-1.030) 12/09/17 11:14 Urine Protein NEGATIVE mg/dL (NEGATIVE) 12/09/17 11:14 Urine Glucose (UA) 100 mg/dL (NEGATIVE) H 12/09/17 11:14 Urine Ketones NEGATIVE mg/dL (NEGATIVE) 12/09/17 11:14 Urine Occult Blood TRACE-LYSE (NEGATIVE) 12/09/17 11:14 Urine Nitrite NEGATIVE (NEGATIVE) 12/09/17 11:14 Urine Bilirubin NEGATIVE (NEGATIVE) 12/09/17 11:14 Urine Urobilinogen 0.2 (NORMAL) E.U./dL (NORMAL) 12/09/17 11:14 Ur Leukocyte Esterase MODERATE (NEGATIVE) H 12/09/17 11:14 Urine RBC 0-5 /HPF (0-5) 12/09/17 11:14 Urine WBC 6-10 /HPF (0-5) H 12/09/17 11:14 Ur Squamous Epith Cells MANY Squamous (<= Few) H 12/09/17 11:14 Urine Bacteria Moderate /HPF (None Seen) H 12/09/17 11:14 Ur Microscopic Review INDICATED 12/09/17 11:14 Urine Culture Comments NOT INDICATED 12/09/17 11:14 Urine HCG, Qual NEGATIVE 12/09/17 11:14 - DIAGNOSTIC IMAGING Diagnostic Imaging Results: Final report reviewed Diagnostic Imaging Results Comments: CT abdomen/pelvis Impression: 1. No dilated bowel or focal inflammation 2. Fatty infiltration of the liver. - FOLLOW UP Follow Up: Patient presented with abdominal pain and diarrhea. It appears that her symptoms were secondary to gastritis. Symptoms improved after observation stay in the hospital. She was discharged home with Zofran, Carafate, omeprazole, GI cocktail and Percocet. The patient will follow up with her primary care physician and will likely need an EGD in the upcoming months. - TIME SPENT Time Spent in Discharge (Minutes): 35
== END 2017-12-10 10:45 | disposition home or self-care (01) ==
LOC: ED 10:09 → OBS 16:57
PROVIDERS: ADMIT Internal Medicine; ATTEND Internal Medicine
DX: K29.00 Acute gastritis without bleeding (principal); K58.0 Irritable bowel syndrome with diarrhea; J45.909 Unspecified asthma, uncomplicated; M54.9 Dorsalgia, unspecified; G89.29 Other chronic pain; I10 Essential (primary) hypertension; J45.20 Mild intermittent asthma, uncomplicated; E66.01 Morbid (severe) obesity due to excess calories; K76.0 Fatty (change of) liver, not elsewhere classified; Z79.899 Other long term (current) drug therapy; Z90.49 Acquired absence of other specified parts of digestive tract; Z68.41 Body mass index [BMI] 40.0-44.9, adult
CPT/HCPCS: 36415; 74177; 80053; 81001; 81025; 83605; 83690; 83735; 84100; 85025; 96361; 96365; 96375; 96376; 99284; A9270; G0378; Q9967; 81003; 87086

== ENCOUNTER 2018-01-03 09:37 | Outpatient (CLI) | payer MEDICAID | END 2018-01-03 09:38 | disposition home or self-care (01) | LOC: SC 09:37 | PROVIDERS: ATTEND Nurse Practitioner Family | DX: G47.33 Obstructive sleep apnea (adult) (pediatric) (principal) | CPT/HCPCS: 99212; 99214 ==

== ENCOUNTER 2018-01-20 16:58 | Emergency (ER) | payer MEDICAID ==
--- NOTE | 2018-01-20 17:35 | ED Physician Documentation ---
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 : None HEENT: None Psych: Depression, Anxiety Musculoskeletal: Chronic back pain Derm: None - Past Surgical History Past Surgical History: Yes General: Cholecystectomy Ortho: ACL reconstruction /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 CUTTING MACHINE TENDER: section, Dilation and currettage, Tubal ligation HEENT: Tonsil/Adenoidectomy - Present Medications Home Medications: Ambulatory Orders Medication Instructions Recorded Confirmed RX: Lisinopril 10 mg PO DAILY 12/18/13 12/10/17 RX: Albuterol Sulfate [Proventil 1 - 2 puffs IH Q4H PRN #1 05/01/16 12/10/17 Hfa Inhaler] hfa.aer.ad RX: Cetirizine [ZyrTEC] 10 mg DAILY 01/17/17 12/10/17 Hyoscyamine [Levsin] 0.125 mg SL Q6H PRN 12/10/17 12/10/17 RX: Ibuprofen 800 mg PO Q8HR PRN 12/10/17 12/10/17 RX: Trazodone HCl 100 mg PO QPM PRN 12/10/17 12/10/17 RX: hydrOXYzine pamoate 25 mg PO TID PRN 12/10/17 12/10/17 [Hydroxyzine Pamoate] RX: raNITIdine HCl [Ranitidine HCl] 150 mg PO BID 12/10/17 12/10/17 Venlafaxine HCl [Venlafaxine HCl 225 mg PO DAILY 12/10/17 12/10/17 ER] Clindamycin HCl [Clindamycin 150MG 2 tab PO QID #80 capsule 01/20/18 CAP] - Allergies Allergies/Adverse Reactions: Allergies Allergy/AdvReac Type Severity Reaction Status Date / Time cefaclor [From [facility]] Allergy Severe Edema Verified 01/20/18 17:03 methylergonovine maleate * Allergy Severe Respiratory Verified 01/20/18 17:03 [From Methergine] Latex, Natural Rubber Allergy Hives Verified 01/20/18 17:03 - Social History Does the pt smoke?: No Smoking Status: Never smoker Does the pt drink ETOH?: Yes Does the pt have substance abuse?: No - Immunizations Immunizations are current?: Yes - POLST Patient has POLST: No POLST Status: Full Code PD ED PE NORMAL - Vitals Vital signs reviewed: Yes - General General: Alert and oriented X 3, No acute distress - Female Female : Living Coach present (Liya Estrada RN), Other (Left labial abscess with cellulitis) - Neuro Neuro: Alert and oriented X 3, Normal speech - Psych Psych: Normal mood, Normal affect Results - Vitals Vitals: Vital Signs - 24 hr 01/20/18 17:00 Temperature 36.9 C Heart Rate 69 Respiratory 18 Rate Blood Pressure 141/96 H O2 Saturation 99 Oxygen O2 Source Room air Procedures - Abscess I&D (location) Left ;abia Preparation: Alcohol, Lidocaine 1% Incision: Incised with scalpel, Purulent drainage, Loculations broken, Culture obtained. No: Packed Other: Pt tolerated well, Dressing applied, Antibiotic prescribed PD MEDICAL DECISION MAKING - Sepsis Event Vital Signs: Vital Signs - 24 hr 01/20/18 17:00 Temperature 36.9 C Heart Rate 69 Respiratory 18 Rate Blood Pressure 141/96 H O2 Saturation 99 Oxygen O2 Source Room air Departure - Departure Disposition: 01 Home, Self Care Clinical Impression: Abscess Condition: Good Record reviewed to determine appropriate education?: Yes Instructions: ED Abscess IandD Prescriptions: Clindamycin HCl [Clindamycin 150MG CAP] 2 tab PO QID #80 capsule Comments: We are performing a wound culture, the results should be done in 48-72 hours. If antibiotic change is necessary we will call you. Return if worse in the meantime, especially if you develop increased pain, fevers, cannot keep down the medication. Otherwise follow-up with your physician in approximately 2-3 days. Your blood pressure was elevated today on check into the emergency department. This does not mean that you have hypertension, it is a common phenomenon to come to the emergency department and have elevated blood pressure. I recommend that you see your primary care physician within the week to have it rechecked when you are feeling better. Discharge Date/Time: 01/20/18 18:17
[2018-01-20] MEDS ORDERED: CLINDAMYCIN 150 MG CAPSULE PO STA (17:55)
[2018-01-20] MEDS ORDERED: HYDROcod/ACET 5/325 Prepack 4 PO STA (17:55)
[2018-01-20 18:17] VITALS: BP 137/84
== END 2018-01-20 18:17 | disposition home or self-care (01) ==
LOC: ED 16:58
DX: N76.4 Abscess of vulva (principal); N76.2 Acute vulvitis; I10 Essential (primary) hypertension
CPT/HCPCS: 56405; 87070; 87205; 99283; A9270

== ENCOUNTER 2018-02-10 16:13 | Outpatient (CLI) | payer MEDICAID | END 2018-02-10 16:14 | disposition critical access hospital (66) | LOC: EMS 16:13 | PROVIDERS: ATTEND Surgery | DX: R58 Hemorrhage, not elsewhere classified (principal) | CPT/HCPCS: A0425; A0429; A0999 ==

== ENCOUNTER 2018-02-10 16:23 | Emergency (ER) | payer MEDICAID ==
[2018-02-10] MEDS ORDERED: HYDROmorphone 1 MG/ML CARPUJECT IVP STA ×2 (16:40→18:17)
[2018-02-10] MEDS ORDERED: ONDANSETRON 4 MG/2 ML VIAL IVP STA (16:40)
--- NOTE | 2018-02-10 16:43 | ED Physician Documentation ---
PD HPI ABD PAIN - Stated complaint Stated Complaint: POST OP COMP - Chief complaint Chief Complaint: Abd Pain - History obtained from History obtained from: Patient, EMS - History of Present Illness Timing - onset: Today (42-year-old woman had a laparoscopic assisted hysterectomy on the of this month by Dr. Watts at [facility] with no complications and expected improvement until today when she started to have leakage from her Pfannenstiel incision associated with possible vaginal bleeding and an increase in pain but no fevers.) Review of Systems Ten Systems: 10 systems reviewed and negative Constitutional: denies: Fever, Chills GI: reports: Abdominal Pain. 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: section, Dilation and currettage, Tubal ligation HEENT: Tonsil/Adenoidectomy - Present Medications Home Medications: Ambulatory Orders Medication Instructions Recorded Confirmed Lisinopril 10 mg PO DAILY 12/18/13 12/10/17 Albuterol Sulfate [Proventil Hfa 1 - 2 puffs IH Q4H PRN #1 05/01/16 12/10/17 Inhaler] hfa.aer.ad Cetirizine [ZyrTEC] 10 mg DAILY 01/17/17 12/10/17 Hyoscyamine [Levsin] 0.125 mg SL Q6H PRN 12/10/17 12/10/17 Ibuprofen 800 mg PO Q8HR PRN 12/10/17 12/10/17 Trazodone HCl 100 mg PO QPM PRN 12/10/17 12/10/17 Venlafaxine HCl [Venlafaxine HCl 225 mg PO DAILY 12/10/17 12/10/17 ER] hydrOXYzine pamoate [Hydroxyzine 25 mg PO TID PRN 12/10/17 12/10/17 Pamoate] raNITIdine HCl [Ranitidine HCl] 150 mg PO BID 12/10/17 12/10/17 Clindamycin HCl [Clindamycin 150MG 2 tab PO QID #80 capsule 01/20/18 CAP] - Allergies Allergies/Adverse Reactions: Allergies Allergy/AdvReac Type Severity Reaction Status Date / Time cefaclor [From Ceclor] Allergy Severe Edema Verified 02/10/18 16:34 methylergonovine maleate * Allergy Severe Respiratory Verified 02/10/18 16:34 [From Methergine] Latex, Natural Rubber Allergy Hives Verified 02/10/18 16:34 - Social History Does the pt smoke?: No Smoking Status: Never smoker Does the pt drink ETOH?: Yes Does the pt have substance abuse?: Yes Substance Use and Type: Marijuana - Family History Family history: reports: Non contributory - Immunizations Immunizations are current?: Yes - POLST Patient has POLST: No POLST Status: Full Code PD ED PE NORMAL - Vitals Vital signs reviewed: Yes - General General: Alert and oriented X 3, Other (She is uncomfortable) - HEENT HEENT: PERRL, EOMI - Neck Neck: Supple, no meningeal sign, No bony TTP - Cardiac Cardiac: RRR, No murmur - Respiratory Respiratory: No respiratory distress, Clear bilaterally - Abdomen Abdomen: Soft, Other (Somewhat difficult exam due to morbid obesity and body habitus, she appears to have probably a seroma in her Pfannenstiel incision seen after movement of her pannus up but there is a lot of tenderness and redness to with potential yeast infection. Vaginal examination was deferred until she has some pain medication because she is quite uncomfortable with motion.) - Back Back: No CVA TTP, No spinal TTP - Derm Derm: Normal color, Warm and dry - Extremities Extremities: No edema, No calf tenderness / cord - Neuro Neuro: Alert and oriented X 3, Normal speech Results - Vitals Vitals: Vital Signs - 24 hr 02/10/18 02/10/18 16:29 18:30 Temperature 36.4 C L 37 C Heart Rate 92 85 Respiratory 20 20 Rate Blood Pressure 106/68 132/69 H O2 Saturation 98 100 Oxygen O2 Source Room air - Labs Labs: Laboratory Tests 02/10/18 02/10/18 02/10/18 16:57 16:57 17:55 WBC 19.7 H RBC 4.45 Hgb 12.0 Hct 36.0 L MCV 80.9 L MCH 27.1 MCHC 33.5 RDW 13.8 Plt Count 328 MPV 7.7 L Neut # (Auto) Not Reportable Lymph # (Auto) Not Reportable [place] # (Auto) Not Reportable Eos # (Auto) Not Reportable Baso # (Auto) Not Reportable Absolute Nucleated RBC Not Reportable Total Counted 100 Band Neuts % (Manual) 6 Abnorm Lymph % (Manual) 0 Nucleated RBC % Not Reportable Neutrophils # (Manual) 17.3 H Lymphocytes # (Manual) 1.8 Monocytes # (Manual) 0.6 Eosinophils # (Manual) 0.0 Basophils # (Manual) 0.0 Differential Comment MANUAL DIFFERENTIAL Platelet Estimate NORMAL (130-450,000) Platelet Morphology NORMAL APPEARANCE RBC Morph Micro Appear NORMAL APPEARANCE Sodium 134 L Potassium 3.5 Chloride 100 L Carbon Dioxide 24 Anion Gap 10.0 BUN 6 Creatinine 0.8 Estimated GFR (MDRD) 78 L Glucose 116 H Calcium 8.6 Total Bilirubin 1.3 H AST 103 H ALT 120 H Alkaline Phosphatase 114 Total Protein 7.1 Albumin 3.5 Globulin 3.6 Albumin/Globulin Ratio 1.0 Lipase 13 L Urine Color YELLOW Urine Clarity HAZY Urine pH 6.0 Ur Specific [place] 1.010 Urine Protein NEGATIVE Urine Glucose (UA) NEGATIVE Urine Ketones TRACE Urine Occult Blood MODERATE H Urine Nitrite NEGATIVE Urine Bilirubin NEGATIVE Urine Urobilinogen 1 (NORMAL) Ur Leukocyte Esterase SMALL H Urine RBC 11-25 H Urine WBC 11-25 H Ur Squamous Epith Cells MANY Squamous H Amorphous Sediment Rare Urine Bacteria Many H Urine Mucus Few Strands Ur Microscopic Review INDICATED Urine Culture Comments NOT INDICATED - Rads (name of study) CT A/P Radiology: EMP read contemporaneously (Superficial abscess anterior abdominal wall with gas in its and also of vaginal cuff fluid collection consistent with abscess.) PD MEDICAL DECISION MAKING - ED course ED course: 42-year-old woman 10 days postop from hysterectomy presents with increased pain and abdominal wall concerns found to have abscess on CT there and at the vaginal room with a white count of 19.7. Patient preferred transfer back to her surgeon, Dr. watts who was contacted by phone at 6:30 PM and accepts in transfer. Does not want us to give antibiotics prior to transfer as she will decide on antibiosis after receipt of the patient. Departure - Departure Disposition: 02 Transfer Acute Care Hosp Clinical Impression: Abdominal wall abscess, Abscess of vagina Condition: Serious
[2018-02-10] MEDS ORDERED: IOPAMIDOL-300 100 ML VIAL ONE (17:01)
[2018-02-10 17:08] LABS: EOSINOPHILS % (AUTO) 0.1 %
[2018-02-10 17:12] LABS: BASOPHILS % (AUTO) 0.8 %; LYMPHOCYTES % (AUTO) 11.6 %; MEAN CORPUSCULAR HEMOGLOBIN 27.1 pg (27.0-31.0); MEAN CORPUSCULAR HGB CONC 33.5 g/dL (32.0-36.0); MEAN CORPUSCULAR VOLUME 80.9 fL (81.0-99.0); MEAN PLATELET VOLUME 7.7 fL (7.9-10.8); MONOCYTES % (AUTO) 8.1 %; NEUTROPHILS % (AUTO) 79.4 %; PLT - PLATELET COUNT 328 10^3/uL (130-450); RED BLOOD COUNT 4.45 10^6/uL (4.20-5.40); RED CELL DISTRIBUTION WIDTH 13.8 % (12.0-15.0); WHITE BLOOD COUNT 19.7 x10^3/uL (4.8-10.8)
[2018-02-10 17:13] LABS: ALBUMIN 3.5 g/dL (3.2-5.5); BILIRUBIN,TOTAL 1.3 mg/dL (0.2-1.0); CALCIUM 8.6 mg/dL (8.5-10.3); CREATININE 0.8 mg/dL (0.4-1.0); TOTAL PROTEIN 7.1 g/dL (6.7-8.2)
[2018-02-10 17:14] LABS: ABNORMAL LYMPHS % (MANUAL) 0 %
[2018-02-10 17:35] LABS: BAND NEUTROPHILS % (MANUAL) 6 %; DIFFERENTIAL COMMENT MANUAL DIFFERENTIAL; LYMPHOCYTES # (MANUAL) 1.8 10^3/uL (1.5-3.5); LYMPHOCYTES % (MANUAL) 9 %; MONOCYTES # (MANUAL) 0.6 10^3/uL (0.0-1.0); NEUTROPHILS # (MANUAL) 17.3 10^3/uL (1.5-6.6); NEUTROPHILS % (MANUAL) 82 %; PLATELET ESTIMATE, MANUAL NORMAL (130-450,000) (NORMAL); PLATELET MORPHOLOGY NORMAL APPEARANCE (NORMAL); RBC MORPHOLOGY (MULTIPLE) NORMAL APPEARANCE (NORMAL)
[2018-02-10] MEDS ORDERED: IOPAMIDOL-300 100 ML VIAL IVP ONE (17:43)
[2018-02-10 18:06] LABS: BILIRUBIN,URINE NEGATIVE (NEGATIVE); GLUCOSE, URINE (UA) NEGATIVE (NEGATIVE); KETONES,URINE (UA) TRACE mg/dL (NEGATIVE); LEUKOCYTE ESTERASE, URINE SMALL (NEGATIVE); NITRITE,URINE NEGATIVE (NEGATIVE); OCCULT BLOOD,URINE MODERATE (NEGATIVE); PROTEIN,URINE NEGATIVE (NEGATIVE); UROBILINOGEN,URINE 1 (NORMAL) E.U./dL (NORMAL)
[2018-02-10 18:21] LABS: CLARITY,URINE HAZY (CLEAR)
[2018-02-10 18:22] LABS: AMORPHOUS SEDIMENT,UR Rare /LPF; BACTERIA,URINE Many /HPF (None Seen); MUCUS,URINE Few Strands; SQUAMOUS EPITHELIAL CELL,UR MANY Squamous (<= Few)
[2018-02-10] MEDS ORDERED: SODIUM CHLORIDE 0.9% 1,000 ML IV ONE (18:24)
[2018-02-10] MEDS ORDERED: PIPERACILLIN/TAZOBACTAM 4.5 GM in SODIUM CHLORIDE 0.9% MINIBAG 100 ML IV STA (18:24)
--- NOTE | 2018-02-10 18:25 | CT Report ---
Reason: IV only, low abd pain 10 d s/p hyst Procedure Date: 02/10/2018 Accession Number: [id number] / [id number] Procedure: CT - Abdomen/Pelvis W/ CPT Code: FULL RESULT: EXAM: CT ABDOMEN AND PELVIS EXAM DATE: 02/10/2018 05:01 PM. CLINICAL HISTORY: Lower abdominal pain. 10 days post hysterectomy. COMPARISONS: ABDOMEN/PELVIS W/ 12/09/2017 12:56 PM. TECHNIQUE: Routine helical CT imaging was performed through the abdomen and pelvis. IV contrast: ISOVUE 300 100mL. Enteric contrast: No. Reconstructions: Coronal and sagittal. In accordance with CT protocol optimization, one or more of the following dose reduction techniques were utilized for this exam: automated exposure control, adjustment of mA and/or KV based on patient size, or use of iterative reconstructive technique. FINDINGS: Lung Bases: Clear. Liver: Enlarged, the right hepatic lobe measuring approximately 22.5 cm in length. Mild diffuse low attenuation of the hepatic parenchyma relative to the spleen, indicating steatosis. No focal hepatic lesion. Gallbladder/Bile Ducts: Post cholecystectomy. No biliary duct dilatation. Spleen: Normal. Pancreas: Normal. Adrenal Glands: Normal. Kidneys and Ureters: Normal. No stones, hydronephrosis, or hydroureter. Peritoneal Cavity/Bowel: No evidence for bowel obstruction or acute inflammatory process. The appendix is normal. No free fluid, pneumoperitoneum, or adenopathy. Pelvic Organs: Interval hysterectomy. Rim-enhancing multiloculated fluid collection abutting the vaginal cuff measuring 3.1 x 2.2 x 3.2 cm (4/78; 6/46). No significant adjacent fat stranding. 2.5 cm benign-appearing right ovarian cyst (4/74). The bladder and left ovary are within normal limits. Vasculature: Normal. Bones: Severe degenerative disk disease at L5-S1. No acute bony abnormality. Other: Rim-enhancing fluid and gas collection in the superficial fat of the low anterior abdominal wall, overlying the surgical incision through the left rectus musculature, measuring approximately 4.9 x 3.6 x 4.4 cm (4/82; 7/31). IMPRESSION: 1. Superficial abscess at the surgical site in the lower anterior abdominal wall. 2. Rim-enhancing multiloculated fluid collection abutting the vaginal cuff without significant adjacent fat stranding, which could represent a forming abscess or evolving postoperative hematoma. 3. 2.5 cm benign-appearing right ovarian cyst, likely physiologic. No further imaging needed per ACR white paper. [facility] The above findings were discussed with Vasquez Nelson by Dr. Stephany Heart at 18:24 hrs on 02/10/18.
[2018-02-10 20:05] VITALS: BP 114/59
== END 2018-02-10 20:15 | disposition short-term general hospital (02) ==
LOC: EDUNIT# → ED 16:23
DX: L02.211 Cutaneous abscess of abdominal wall (principal); T81.41XA Infection following a procedure, superficial incisional surgical site, initial encounter; I10 Essential (primary) hypertension
CPT/HCPCS: 36415; 74177; 80053; 81001; 83690; 85025; 96361; 96374; 96376; 99284; 99285; J1170; Q9967; 81003; 87086

== ENCOUNTER 2018-02-10 20:12 | Outpatient (CLI) | payer MEDICAID | END 2018-02-10 20:13 | disposition short-term general hospital (02) | LOC: EMS 20:12 | PROVIDERS: ATTEND Surgery | DX: R10.9 Unspecified abdominal pain (principal) | CPT/HCPCS: A0425; A0426; A0999 ==

== ENCOUNTER 2018-05-06 13:22 | Emergency (ER) | payer MEDICAID | END 2018-05-06 13:23 | disposition left against medical advice (07) | LOC: ED 13:22 | DX: Z53.21 Procedure and treatment not carried out due to patient leaving prior to being seen by health care provider (principal) ==

== ENCOUNTER 2018-05-06 16:19 | Emergency (ER) | payer MEDICAID ==
[2018-05-06 16:39] VITALS: BP 189/102
--- NOTE | 2018-05-06 17:46 | XRAY Report ---
Reason: pain Procedure Date: 05/06/2018 Accession Number: [id number] / [id number] Procedure: XR - Knee 4 View LT CPT Code: FULL RESULT: EXAM: LEFT KNEE RADIOGRAPHY EXAM DATE: 05/06/2018 05:12 PM. CLINICAL HISTORY: Pain. COMPARISON: XR KNEE 4 OR MORE VIEWS 12/25/2010 11:18 AM. TECHNIQUE: 4 views. FINDINGS: Bones: No acute fractures or suspicious bone lesions. Joints: No effusion. No subluxations. Moderate narrowing of the medial compartment with small osteophytes and sclerosis. Soft Tissues: Unremarkable. IMPRESSION: No acute radiographic abnormalities. Moderate medial compartment osteoarthritis. RADIA
--- NOTE | 2018-05-06 18:23 | ED Physician Documentation ---
PD HPI LOWER EXT INJURY - Stated complaint Stated Complaint: SWOLLEN KNEE - Chief complaint Chief Complaint: Trauma Ext - History obtained from History obtained from: Patient - History of Present Illness PD HPI LOW EXT INJURY LOCATION: Left, Knee Type of injury: Other (unknown injury) Timing - onset: How many months ago (04/17) Timing - duration: Months Timing - details: Gradual onset, Still present Improved by: Rest, Immobilization Worsened by: Moving, Palpating Associated symptoms: Swelling. No: Weakness, Numbness Contributing factors: No: Anticoagulated Similar symptoms before: Diagnosis (ACL tear and meniscus damage to the right knee) Recently seen: Not recently seen - Additional information Additional information: 43-year-old female has had a problem with some pain in her left knee for the past month and a half. She is noted that this does not seem to be getting any better and in fact is worse she is having some bit of a harder time getting around on this and she notes that there is a sensation of grinding with movement and popping. She has not had her knee lock up on her. She is able to bear weight. Review of Systems Constitutional: denies: Fever Eyes: denies: Decreased vision Ears: denies: Ear pain Nose: denies: Congestion Throat: denies: Sore throat Respiratory: denies: Cough GI: denies: Nausea, Vomiting : denies: Dysuria Skin: denies: Rash Musculoskeletal: reports: Joint pain, Pain with weight bearing. 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 : None HEENT: None Psych: Depression, Anxiety Musculoskeletal: Chronic back pain Derm: None - Past Surgical History Past Surgical History: Yes General: Cholecystectomy Ortho: ACL reconstruction /EXPEDITER CLERK: section, Dilation and currettage, Tubal ligation, Hysterectomy, Oophrectomy HEENT: Tonsil/Adenoidectomy - Present Medications Home Medications: Ambulatory Orders Medication Instructions Recorded Confirmed Lisinopril 10 mg PO DAILY 12/18/13 05/06/18 Albuterol Sulfate [Proventil Hfa 1 - 2 puffs IH Q4H PRN #1 05/01/16 05/06/18 Inhaler] [email or web address] Cetirizine [ZyrTEC] 10 mg DAILY 01/17/17 05/06/18 Hyoscyamine [Levsin] 0.125 mg SL Q6H PRN 12/10/17 05/06/18 Ibuprofen 800 mg PO Q8HR PRN 12/10/17 05/06/18 Trazodone HCl 100 mg PO QPM PRN 12/10/17 05/06/18 Venlafaxine HCl [Venlafaxine HCl 225 mg PO DAILY 12/10/17 05/06/18 ER] hydrOXYzine pamoate [Hydroxyzine 25 mg PO TID PRN 12/10/17 05/06/18 Pamoate] raNITIdine HCl [Ranitidine HCl] 150 mg PO BID 12/10/17 05/06/18 Hydrocodone/Acetaminophen 1 - 2 each PO Q6H PRN #14 tablet 05/06/18 [Hydrocodon-Acetaminophen 5-325] - Allergies Allergies/Adverse Reactions: Allergies Allergy/AdvReac Type Severity Reaction Status Date / Time cefaclor [From Ceclor] Allergy Severe Edema Verified 05/06/18 16:38 methylergonovine maleate * Allergy Severe Respiratory Verified 05/06/18 16:38 [From Methergine] Latex, Natural Rubber Allergy Hives Verified 05/06/18 16:38 - Social History Does the pt smoke?: No Smoking Status: Never smoker Does the pt drink ETOH?: Yes Does the pt have substance abuse?: Yes - Immunizations Immunizations are current?: Yes - POLST Patient has POLST: No POLST Status: Full Code PD ED PE NORMAL - Vitals Vital signs reviewed: Yes (hypertensive ) - General General: Alert and oriented X 3, No acute distress, Well developed/nourished, Other (pleasant overweight female in no distress) - HEENT HEENT: Atraumatic, PERRL - Respiratory Respiratory: No respiratory distress - Derm Derm: Normal color, Warm and dry, No rash - Extremities Extremities: No deformity, No edema, Other (The left knee is examined and there does not appear to be ligamentous laxity. There does appear to be pain to the medial joint line. distal n/v is intact. ) - Neuro Neuro: Alert and oriented X 3, representative phlebotomy services 2-12 intact, No motor deficit, No sensory deficit, Normal speech Eye Opening: Spontaneous Motor: Obeys Commands Verbal: Oriented GCS Score: 15 - Psych Psych: Normal mood, Normal affect Results - Vitals Vitals: Vital Signs - 24 hr 05/06/18 16:35 Temperature 36.0 C L Heart Rate 93 Respiratory 16 Rate Blood Pressure 189/102 H O2 Saturation 100 Oxygen O2 Source Room air - Rads (name of study) left knee Radiology: Prelim report reviewed (Impression: No acute radiographic abnormalities. Moderate medial compartment osteoarthritis.), EMP read indepedently, See rad report PD MEDICAL DECISION MAKING - ED course Complexity details: reviewed results, re-evaluated patient, considered differential, d/w patient, d/w family ED course: 43-year-old female with left knee pain appears to have a meniscus injury and she is placed onto crutches given a dose of dexamethasone and referred to orthopedics. Departure - Departure Disposition: 01 Home, Self Care Clinical Impression: Injury of meniscus of left knee Qualifiers: Encounter type: initial encounter Qualified Code(s): S83.8X2A - Sprain of other specified parts of left knee, initial encounter Condition: Stable Instructions: ED Meniscal Injury Knee Poss Follow-Up: Azul Bullock MD [Primary Care Provider] - [facility] [Provider Group] Prescriptions: Hydrocodone/Acetaminophen [Hydrocodon-Acetaminophen 5-325] 1 - 2 each PO Q6H PRN #14 tablet PRN Reason: pain
[2018-05-06] MEDS ORDERED: DEXAMETHASONE 10 MG/ML VIAL PO STA (18:25)
== END 2018-05-06 19:10 | disposition home or self-care (01) ==
LOC: ED 16:19
DX: S83.8X2A Sprain of other specified parts of left knee, initial encounter (principal); X58.XXXA Exposure to other specified factors, initial encounter; I10 Essential (primary) hypertension
CPT/HCPCS: 99283

== ENCOUNTER 2018-07-30 09:00 | Outpatient (CLI) | payer MEDICAID | END 2018-07-30 09:01 | disposition home or self-care (01) | LOC: SC 09:00 | PROVIDERS: ATTEND Internal Medicine Pulmonary Disease | DX: G47.33 Obstructive sleep apnea (adult) (pediatric) (principal) | CPT/HCPCS: 99212; 99213 ==

== ENCOUNTER 2018-11-11 10:01 | Outpatient (CLI) | payer MEDICAID ==
[2018-11-11 11:40] VITALS: BP 128/70
--- NOTE | 2018-11-11 11:40 | CONSULTATION NOTE ---
Information from patient questionnaire entered by Nely Post. I have reviewed and concur with the information entered by Nely Post. This document represents the service I personally performed and the decisions made by me, Sera Shin RN, MSN, FORM DESIGNER. - History of Present Illness HPI: PARRISH VINCENT was diagnosed to have moderate, AHI 27.1, obstructive sleep apnea- hypopnea syndrome and returned today for CPAP therapy first compliance follow-up after updating her CPAP device. She has diligently been trying to lose weight but has not been successful and voices frustration. She has modified diet that has reduces sugar intake and portions as well as increased physical activity. She has an appointment next week with her primary care to discuss her weight loss frustration. She has weaned off of venalfaxine last fall after her hysterectomy. She has changed jobs that reduced stress and need for anxiety medications. She has also weaned off of her lisinopril about a year ago. Since her hysterectomy her energy has also improved. She also recognized mother and sibling dyanmics and how it affected her life and her new priorities for self care. Equipment obtained from: [facility] Mask style: Nasal Mask brand: Respironics Backup mask available: Yes Last cushion change: 1 month ago - Compliance Data Reviewed with Patient Compliance rate % (4+hrs/night over past 30 nights): 100 Current pressure setting (cmH2O): 10-15 cmH2O Humidity settin Heated hose settin (no heated hose and condensation in mask. ) Average residual AHI: 0.7 Average large leak: 30 seconds - Subjective Patient concerns: condensation in mask/hose, nasal congestion, dry mouth, nose, throat Observed to snore while using device: No Current pressure setting perceived as: comfortable On therapy, patient reports: sleeping better, awakening more refreshed, being more awake and alert during the day, more rested overall Initial [place] Sleepiness Scale score: 4 Current [place] Sleepiness Scale score: 3 - Review of Systems Review of systems same as previous: Yes Ear/Nose/Throat: reports: nasal congestion Immunologic: reports: allergies to food or environment, other: (seasonal nasal congestion that is not interfering with CPAP use) - Allergies/Medications No longer taking lisinopril, venlafaxine, sucralfate, ranitidine. Blood pressure remains stable and patient anxiety is controlled with lifestyle change of not working with her mother. Allergies and home medications reviewed: Yes - Physical Examination Blood Pressure: 128/70 Cuff size: long Heart Rate: 78 O2 Saturation: 98 Height: 5 ft 7 in Weight (kg): 135.171 kg Body Mass Index: 46.6 BMI Classification: Class 3 - Impression 1. Obstructive Sleep Apnea-Hypopnea Syndrome, moderate, with good treatment compliance and good apnea control. On CPAP therapy, there is improved sleep quality and continues to feel more rested overall. For her condensation, I will order a heated hose. Until then she was instructed how to lower her humidity setting on sample device. For her weight concerns, I advised her to discuss with her PCP the possibility of a diet consultation. A diet consultation can assist her to achieve her optimal weight loss goals. The patient is aware she meets requirements for bariatric surgery but would prefer to first try with diet modification. So far her attempts are not achieving weight loss.I discussed how as she loses weight her CPAP requirements will also reduce. Symptoms to report were discussed for pressure adjustment. Patient's apnea severity and rationale for treatment to reduce apnea, improve sleep quality and reduce cardiovascular and cerebrovascular events was reviewed. I also reviewed the benefit of consistent device use of CPAP for hypertension, gastric reflux, and anxiety. I also reviewed how her increase in activity can benefit her hypertension. - Plan Plan: Continue auto CPAP pressure at 10-15 cm H2O. Notify me if snoring with the mask or feeling that the pressure is too much or too little. Attempt to lose weight. Follow up with PCP to discuss diet consultation. Order for heated hose Adjust humidity Return for follow-up in 1one year, or sooner if concerns arise. I spent 100% of this 37 minute visit face to face with the patient with greater than 50% of this was spent time counseling the patient and coordination of care.
== END 2018-11-11 10:02 | disposition home or self-care (01) ==
LOC: SC 10:01
PROVIDERS: ATTEND Nurse Practitioner Family
DX: G47.33 Obstructive sleep apnea (adult) (pediatric) (principal)
CPT/HCPCS: 99212; 99214

== ENCOUNTER 2018-12-03 06:42 | Emergency (ER) | payer MEDICAID ==
[2018-12-03 07:40] LABS: BASOPHILS # (AUTO) 0.1 10^3/uL (0.0-0.1); BASOPHILS % (AUTO) 0.8 %; EOSINOPHILS # (AUTO) 0.1 10^3/uL (0.0-0.7); EOSINOPHILS % (AUTO) 1.8 %; HGB - HEMOGLOBIN 13.9 g/dL (12.0-16.0); LYMPHOCYTES # (AUTO) 2.3 10^3/uL (1.5-3.5); LYMPHOCYTES % (AUTO) 31.9 %; MEAN CORPUSCULAR HEMOGLOBIN 26.9 pg (27.0-31.0); MEAN CORPUSCULAR HGB CONC 33.2 g/dL (32.0-36.0); MEAN CORPUSCULAR VOLUME 81.2 fL (81.0-99.0); MONOCYTES # (AUTO) 0.7 10^3/uL (0.0-1.0); MONOCYTES % (AUTO) 10.3 %; NEUTROPHILS # (AUTO) 3.9 10^3/uL (1.5-6.6); NEUTROPHILS % (AUTO) 54.6 %; PLT - PLATELET COUNT 270 10^3/uL (130-450); RED BLOOD COUNT 5.16 10^6/uL (4.20-5.40); RED CELL DISTRIBUTION WIDTH 13.7 % (12.0-15.0); WHITE BLOOD COUNT 7.2 x10^3/uL (4.8-10.8)
[2018-12-03 08:17] LABS: ALBUMIN 3.9 g/dL (3.2-5.5); ALBUMIN/GLOBULIN RATIO 1.3 (1.0-2.2); BILIRUBIN,TOTAL 0.8 mg/dL (0.2-1.0); CALCIUM 9.4 mg/dL (8.5-10.3); CREATININE 0.8 mg/dL (0.4-1.0)
[2018-12-03] MEDS ORDERED: MORPHINE 10 MG/ML VIAL IVP STA (08:17)
[2018-12-03] MEDS ORDERED: SODIUM CHLORIDE 0.9% 1,000 ML IV ONE ×2 (08:17→11:01)
[2018-12-03] MEDS ORDERED: PANTOPRAZOLE 40 MG VIAL IVP STA (08:17)
[2018-12-03] MEDS ORDERED: ONDANSETRON 4 MG/2 ML VIAL IVP STA (08:17)
[2018-12-03] MEDS ORDERED: SUCRALFATE 1 GM/10 ML UDC PO STA (08:18)
[2018-12-03] MEDS ORDERED: MAG HYDROX/AL HYDROX/SIMETH 30 ML UDC PO STA (08:18)
[2018-12-03] MEDS ORDERED: LIDOCAINE VISCOUS 2% 15 ML UDC MM STA (08:18)
--- NOTE | 2018-12-03 08:21 | ED Physician Documentation ---
PD HPI ABD PAIN - Stated complaint Stated Complaint: ABD/BACK PX - Chief complaint Chief Complaint: Abd Pain - History obtained from History obtained from: Patient - History of Present Illness Timing - onset: How many days ago (3) Timing - duration: Days (3) Timing - details: Gradual onset, Still present Quality: Cramping, Sharp, Pain Location: Epigastric, Periumbilical, Suprapubic Radiation: Lower back Improved by: Other (nothing) Worsened by: Eating, Palpation Associated symptoms: Nausea, Diarrhea. No: Vomiting Similar symptoms before: Diagnosis (gastritis) Recently seen: Not recently seen - Additional information Additional information: 43-year-old female with a history of irritable bowel syndrome has developed abdominal pain nausea and diarrhea about 3 days ago. She is had significant cramping with her epigastric pain similar to what she would have when she used to have her menstrual cramps. She has had a symptom or episode last year about this time where she was hospitalized overnight for intractable symptoms. She had resolution of her symptoms by the next day after overnight fasting on IV fluid. Review of Systems Constitutional: denies: Fever Eyes: denies: Decreased vision Ears: denies: Ear pain Nose: denies: Congestion Throat: denies: Sore throat Respiratory: denies: Cough GI: reports: Abdominal Pain, Nausea, Diarrhea. denies: Vomiting : denies: Dysuria, Frequency Skin: denies: Rash Musculoskeletal: reports: Back pain. 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 : None HEENT: None Psych: Depression, Anxiety Musculoskeletal: Chronic back pain Derm: None - Past Surgical History Past Surgical History: Yes General: Cholecystectomy Ortho: ACL reconstruction /FACILITY SERVICE ASSOCIATE: section, Dilation and currettage, Tubal ligation, Hysterectomy, Oophrectomy HEENT: Tonsil/Adenoidectomy - Present Medications Home Medications: Ambulatory Orders Medication Instructions Recorded Confirmed Lisinopril 10 mg PO DAILY 12/18/13 05/06/18 Albuterol Sulfate [Proventil Hfa 1 - 2 puffs IH Q4H PRN #1 05/01/16 05/06/18 Inhaler] hfa.[email or web address].ad Cetirizine [ZyrTEC] 10 mg DAILY 01/17/17 05/06/18 Hyoscyamine [Levsin] 0.125 mg SL Q6H PRN 12/10/17 05/06/18 Ibuprofen 800 mg PO Q8HR PRN 12/10/17 05/06/18 Trazodone HCl 100 mg PO QPM PRN 12/10/17 05/06/18 Venlafaxine HCl [Venlafaxine HCl 225 mg PO DAILY 12/10/17 05/06/18 ER] hydrOXYzine pamoate [Hydroxyzine 25 mg PO TID PRN 12/10/17 05/06/18 Pamoate] raNITIdine HCl [Ranitidine HCl] 150 mg PO BID 12/10/17 05/06/18 Hydrocodone/Acetaminophen 1 - 2 each PO Q6H PRN #14 tablet 05/06/18 [Hydrocodon-Acetaminophen 5-325] Ondansetron Odt [Zofran] 4 mg TL Q6H PRN #10 tablet 12/03/18 Sucralfate [Carafate] 1 gm PO ACHS #60 tablet 12/03/18 - Allergies Allergies/Adverse Reactions: Allergies Allergy/AdvReac Type Severity Reaction Status Date / Time cefaclor [From Ceclor] Allergy Severe Edema Verified 12/03/18 06:49 methylergonovine maleate * Allergy Severe Respiratory Verified 12/03/18 06:49 [From Methergine] Latex, Natural Rubber Allergy Hives Verified 12/03/18 06:49 - Social History Does the pt smoke?: No Smoking Status: Never smoker Does the pt drink ETOH?: Yes Does the pt have substance abuse?: Yes - Immunizations Immunizations are current?: Yes - POLST Patient has POLST: No POLST Status: Full Code PD ED PE NORMAL - Vitals Vital signs reviewed: Yes (normal ) - General General: Alert and oriented X 3, Well developed/nourished, Other (gwot ia/ilo intelligence support tone and flat affect consistent with days of pain ) - HEENT HEENT: Atraumatic, PERRL, EOMI - Neck Neck: Supple, no meningeal sign - Cardiac Cardiac: RRR, No murmur - Respiratory Respiratory: No respiratory distress, Clear bilaterally - Abdomen Abdomen: Soft, Other (mild general tenderness without gaurding or rebound) - Back Back: No CVA TTP, No spinal TTP, Other (paraspinous muscle tenderness to the lower lumbar spine. ) - Derm Derm: Normal color, No rash - Extremities Extremities: No deformity, No edema - Neuro Neuro: Alert and oriented X 3, database security expert 2-12 intact, No motor deficit, No sensory deficit, Normal speech Eye Opening: Spontaneous Motor: Obeys Commands Verbal: Oriented GCS Score: 15 - Psych Psych: Normal mood, Normal affect Results - Vitals Vitals: Vital Signs - 24 hr 12/03/18 12/03/18 12/03/18 06:45 08:49 10:00 Temperature 36.4 C L 36.7 C 36.7 C Heart Rate 61 56 L 56 L Respiratory 16 16 14 Rate Blood Pressure 101/74 116/74 135/81 H O2 Saturation 96 99 98 Oxygen O2 Source Room air - Labs Labs: Laboratory Tests 12/03/18 12/03/18 12/03/18 07:30 07:30 11:00 WBC 7.2 RBC 5.16 Hgb 13.9 Hct 41.9 MCV 81.2 MCH 26.9 L MCHC 33.2 RDW 13.7 Plt Count 270 MPV 10.0 Neut # (Auto) 3.9 Lymph # (Auto) 2.3 [place] # (Auto) 0.7 Eos # (Auto) 0.1 Baso # (Auto) 0.1 Absolute Nucleated RBC 0.00 Nucleated RBC % 0.0 Sodium 137 Potassium 4.1 Chloride 109 Carbon Dioxide 16 L Anion Gap 12.0 BUN 11 Creatinine 0.8 Estimated GFR (MDRD) 78 L Glucose 115 H Calcium 9.4 Total Bilirubin 0.8 AST 35 ALT 36 Alkaline Phosphatase 42 Total Protein 7.0 Albumin 3.9 Globulin 3.1 Albumin/Globulin Ratio 1.3 Lipase 20 L Urine Color YELLOW Urine Clarity CLEAR Urine pH 6.0 Ur Specific [place] 1.020 Urine Protein NEGATIVE Urine Glucose (UA) NEGATIVE Urine Ketones NEGATIVE Urine Occult Blood NEGATIVE Urine Nitrite NEGATIVE Urine Bilirubin NEGATIVE Urine Urobilinogen 0.2 (NORMAL) Ur Leukocyte Esterase NEGATIVE Ur Microscopic Review NOT INDICATED Urine Culture Comments NOT INDICATED Procedures - IVC sono (time) 0810 Bedside IVC sono: IVC measures (cm) (1.17), IVC collapsed c insp (cm) (complete), Dehydration (est >1 liter deficit) PD MEDICAL DECISION MAKING - ED course Complexity details: reviewed old records, reviewed results, re-evaluated patient, considered differential, d/w patient, d/w family ED course: 43-year-old female who has had similar symptoms previously about this time of year last year has developed abdominal pain and diarrhea with some nausea without vomiting. She feels bloated and painful from the suprapubic area to the costal margin and she is tried a number of remedies at home without resolution. Last year when she had this she had intractable pain and vomiting and required overnight hospitalization recovered rapidly with fasting and IV fluids.Today here in the emergency department she is treated with intravenous saline Zofran and morphine her electrolytes are unremarkable her volume status was down about 1+ liter and she was given 1+ liter of saline. She is improvement at the conclusion of treatment. She did have some improvement with the use of the visc ous lidocaine and Mylanta as well. She was given protonix intravenously as well. Departure - Departure Disposition: 01 Home, Self Care Clinical Impression: Gastroenteritis, Dehydration Condition: Stable Instructions: ED Dehydration, ED Gastroenteritis Vs Food Poison Follow-Up: Azul Bullock MD [Primary Care Provider] - Prescriptions: Ondansetron Odt [Zofran] 4 mg TL Q6H PRN #10 tablet PRN Reason: Nausea / Vomiting Sucralfate [Carafate] 1 gm PO ACHS #60 tablet
[2018-12-03 11:14] LABS: BILIRUBIN,URINE NEGATIVE (NEGATIVE); GLUCOSE, URINE (UA) NEGATIVE (NEGATIVE); KETONES,URINE (UA) NEGATIVE (NEGATIVE); LEUKOCYTE ESTERASE, URINE NEGATIVE (NEGATIVE); NITRITE,URINE NEGATIVE (NEGATIVE); OCCULT BLOOD,URINE NEGATIVE (NEGATIVE); PROTEIN,URINE NEGATIVE (NEGATIVE); UROBILINOGEN,URINE 0.2 (NORMAL) E.U./dL (NORMAL)
[2018-12-03 11:15] LABS: CLARITY,URINE CLEAR (CLEAR)
[2018-12-03 12:22] VITALS: BP 112/69
== END 2018-12-03 13:15 | disposition home or self-care (01) ==
LOC: ED 06:42
DX: K52.9 Noninfective gastroenteritis and colitis, unspecified (principal); E86.0 Dehydration; I10 Essential (primary) hypertension
CPT/HCPCS: 36415; 80053; 81003; 83690; 85025; 96361; 96374; 96375; 99283; 99284; A9270; 81001; 87086

== ENCOUNTER 2019-06-23 09:29 | Outpatient (CLI) | payer MEDICAID ==
--- NOTE | 2019-06-25 10:02 | Mammography Report ---
Reason: ROUTINE MAMMO Procedure Date: 06/23/2019 Accession Number: [id number] / [id number] Procedure: SANDY - Screening Mammo w/Kev CPT Code: Final Report FULL RESULT: EXAM: Screening Mammo w/Kev DATE: 06/23/2019 10:07 AM CLINICAL HISTORY: Screening encounter. TECHNIQUE: (B) - Bilateral CC, laterally exaggerated CC, MLO views were obtained. COMPARISON: None PARENCHYMAL PATTERN: (D) - The breast(s) demonstrate(s) heterogeneously dense fibroglandular parenchyma. FINDINGS: There are no suspicious masses, calcifications, or areas of distortion. IMPRESSION: Negative examination. BI-RADS category 1. RECOMMENDATION: (ANNUAL) - Recommend routine annual screening mammography. BI-RADS CATEGORY: (1) - Negative. STANDARD QUALIFYING STATEMENTS: 1. This examination was not reviewed with the aid of Computer-Aided Detection (CAD). 2. A negative or benign imaging report should not preclude biopsy if clinically suspicious findings are present. 3. Dense breasts may obscure an underlying neoplasm. 4. This examination was reviewed with the aid of 3D breast imaging (tomosynthesis).
== END 2019-06-23 09:30 | disposition home or self-care (01) ==
LOC: DI 09:29
PROVIDERS: ATTEND Family Medicine
DX: Z12.31 Encounter for screening mammogram for malignant neoplasm of breast (principal)
CPT/HCPCS: 77063; 77067

== ENCOUNTER 2019-07-03 11:58 | Outpatient (CLI) | payer MEDICAID | END 2019-07-03 11:59 | disposition critical access hospital (66) | LOC: EMS 11:58 | PROVIDERS: ATTEND Surgery | DX: R10.9 Unspecified abdominal pain (principal); M54.2 Cervicalgia; V49.40XA Driver injured in collision with unspecified motor vehicles in traffic accident, initial encounter; Y92.413 State road as the place of occurrence of the external cause | CPT/HCPCS: A0425; A0429; A0999 ==

== ENCOUNTER 2019-07-03 12:11 | Emergency (ER) | payer MEDICAID ==
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
[2019-07-03] MEDS ORDERED: KETOROLAC 60 MG/2 ML VIAL IM STA (13:46)
[2019-07-03 14:26] VITALS: BP 164/94
== END 2019-07-03 14:25 | disposition home or self-care (01) ==
LOC: ED 12:11
DX: Z04.1 Encounter for examination and observation following transport accident (principal); I10 Essential (primary) hypertension
CPT/HCPCS: 96372; 99283; 99284

== ENCOUNTER 2019-10-03 13:16 | Outpatient (CLI) | payer MEDICAID | END 2019-10-03 13:17 | disposition home or self-care (01) | LOC: LAB 13:16 | PROVIDERS: ATTEND Internal Medicine | DX: Z11.59 Encounter for screening for other viral diseases (principal) | CPT/HCPCS: 81599 ==

== ENCOUNTER 2020-01-08 10:07 | Outpatient (CLI) | payer MEDICAID ==
--- NOTE | 2020-01-08 10:40 | SLEEP CARE CONSULTATION ---
Information from patient questionnaire entered by Gris Anaya. I have reviewed and concur with the information entered by Gris Anaya. This document represents the service I personally performed and the decisions made by me, Sera Shin, RN, MSN, FLOOR LAYER APPRENTICE. History of Present Illness Service Date and Time: 01/08/2020 1007 Previous diagnosis: Moderate, Obstructive Sleep Apnea-Hypopnea Syndrome AHI: 27.1 (in 2013) Reason for follow up: annual (last seen 2018) Equipment type: CPAP Equipment obtained from: [employer] (getting supplies as needed) Mask style: Nasal Mask brand: Respironics ([place]isp) Backup mask available: Yes (old mask) Last cushion change: 2 weeks ago Prior sleep studies: Yes Year and [facility] Type of Sleep Study: Polysomnography CPAP Compliance Data - Data Reviewed with Patient Average duration of nightly device use: 8.9 Compliance rate %: 99.4 (180 days) Current pressure setting (cmH2O): 10-15 Humidity settin Heated hose settin Average residual AHI: 0.4 (90% pressure 11.2 cmH20) Average large leak: 6 sec Subjective Patient concerns: denies: aerophagia, mask discomfort, air blowing in eyes, mask leak noise, condensation in mask/hose, nasal congestion, dry mouth, nose, throat, epistaxis, other Observed to snore while using device: No Current pressure setting perceived as: comfortable On therapy, patient: reports: sleeping better, awakening more refreshed, being more awake and alert during the day, more rested overall. denies: drowsiness while driving Initial [place] Sleepiness Scale score: 4 (in 2013) Allergies and Home Medications Known drug allergies: Yes (see list ) Home medication list reviewed: Yes (Has been reducing medications needs - see new list) Allergy and home medication list: Stopped lisinopril and Effexor Continues hydroxyzine 50mg prn anxiety Zyrtec 10mg daily Trazadone 100mg HS for sleep Review of Systems Review of systems same as previous: No Physical Exam Height: 5 ft 7 in Weight: 295 lb (home weight) Weight change since last visit: lost 3 pounds Body Mass Index: 46.2 BMI Classification: Morbidly Obese Impression and Plan 1. Obstructive Sleep Apnea-Hypopnea Syndrome, moderate, with excellent treatment compliance and excellent apnea control. On CPAP therapy, the patient has better sleep quality and is more rested overall. Patient has lost weight. Currently patients BMI is 43.8 obesity class . Obesity increases the risk of apnea, CPAP pressure requirements and overall health risks especially cardiovascular and diabetes. Thus patient is advised to continue to lose weight. Weight loss can be done with reducing portion size, reducing refined foods and balancing content with vegetables, fruit and protein. In addition tracking food intake will allow awareness of how to modify diet to achieve weight loss goals. Also eating more slowly will allow more awareness of food intake and enjoyment of food while assisting patient to modify intake at each meal. A diet consultation can be helpful in achieving optimal weight loss goals. The patient would like to reduce to 160-170 pounds which she felt better at in past. She would be happy with any weight loss around 200. Patient advised to break down in small increments for success. Patient encouraged to discuss their weight loss goals with their PCP and consider a referral to a wire straightening machine operator. She agreed. The patient's CPAP pressure range should accommodate some weight loss. She does not want to lower autoRAnge at this time. Symptoms to report for additional pressure adjustment discussed. Patient's apnea severity and rationale for treatment to reduce apnea, improve sleep quality and reduce cardiovascular and cerebrovascular events was reviewed. I also reviewed the benefit of consistent device use of CPAP for hypertension, depression/anxiety. As noted in medication history, she has been able to come off of lisinopril and Effexor in past year. * Continue auto CPAP pressure at 10-15 cmH2O * Notify me if snoring with mask or feeling that the pressure is too much or too little * Continue to lose weight * Follow up with PCP for diet consultation referral * Call this office if any problems using CPAP * Return for follow up in 1 year , or sooner if concerns arise Visit Type: Telehealth Video Video Type: [employer] Patient agrees and consents to this telehealth visit type: Yes Patient agrees to have their insurance billed: Yes Time Spent with Patient (minutes): 16 Provider Statement: I spent 100% of the Telehealth Video Call with the patient with greater than 50% spent counseling the patient and coordination of care.
== END 2020-01-08 10:08 | disposition home or self-care (01) ==
LOC: SC 10:07
PROVIDERS: ATTEND Nurse Practitioner Family
DX: G47.33 Obstructive sleep apnea (adult) (pediatric) (principal); E66.01 Morbid (severe) obesity due to excess calories; Z68.42 Body mass index [BMI] 45.0-49.9, adult

== ENCOUNTER 2020-01-13 10:50 | Emergency (ER) | payer MEDICAID ==
[2020-01-13] MEDS ORDERED: BUFFERED LIDOCAINE 10 ML SYRINGE SUBQ STA (11:41)
[2020-01-13] MEDS ORDERED: BACITRACIN ZINC OINT 1 PACKET TOP STA (12:00)
--- NOTE | 2020-01-13 12:03 | ED Physician Documentation ---
History of Present Illness - Stated complaint Stated Complaint: R HAND LAC - Chief complaint Chief Complaint: Laceration - History obtained from History obtained from: Patient - History of Present Illness Timing: Prior to arrival - Additonal information Additional information: 44-year-old female presents to the emergency department for evaluation of a laceration on the dorsum of her right thumb between the MCP and DIP joints. Sustained when washing dishes and a glass broke. Tetanus is up-to-date within the last 5 years. Patient is right-hand dominant. Bleeding controlled with pressure. Review of Systems Constitutional: reports: Reviewed and negative Nose: reports: Reviewed and negative Throat: reports: Reviewed and negative Cardiac: reports: Reviewed and negative GI: reports: Reviewed and negative : reports: Reviewed and negative Skin: reports: Laceration (s) (dorsum right thumb) Musculoskeletal: reports: Reviewed and negative Neurologic: reports: Reviewed and negative Psychiatric: reports: Reviewed and negative PD PAST MEDICAL HISTORY - Past Medical History Past Medical History: Yes Cardiovascular: Hypertension, Other Respiratory: Asthma, Sleep apnea, CPAP use Neuro: None Endocrine/Autoimmune: None GI: GERD, 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 : None HEENT: None Psych: Depression, Anxiety Musculoskeletal: Chronic back pain Derm: None - Past Surgical History Past Surgical History: Yes General: Cholecystectomy Ortho: ACL reconstruction /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: section, Dilation and currettage, Tubal ligation, Hysterectomy, Oophrectomy HEENT: Tonsil/Adenoidectomy - Present Medications Home Medications: Ambulatory Orders Medication Instructions Recorded Confirmed Lisinopril 10 mg PO DAILY 12/18/13 05/06/18 Albuterol Sulfate [Proventil Hfa 1 - 2 puffs IH Q4H PRN #1 05/01/16 05/06/18 Inhaler] hfa.[email or web address] Cetirizine [ZyrTEC] 10 mg DAILY 01/17/17 05/06/18 Hyoscyamine [Levsin] 0.125 mg SL Q6H PRN 12/10/17 05/06/18 Ibuprofen 800 mg PO Q8HR PRN 12/10/17 05/06/18 Trazodone HCl 100 mg PO QPM PRN 12/10/17 05/06/18 Venlafaxine HCl [Venlafaxine HCl 225 mg PO DAILY 12/10/17 05/06/18 ER] hydrOXYzine pamoate [Hydroxyzine 25 mg PO TID PRN 12/10/17 05/06/18 Pamoate] raNITIdine HCL [Ranitidine HCl] 150 mg PO BID 12/10/17 05/06/18 Hydrocodone/Acetaminophen 1 - 2 each PO Q6H PRN #14 tablet 05/06/18 [Hydrocodon-Acetaminophen 5-325] Ondansetron Odt [Zofran] 4 mg TL Q6H PRN #10 tablet 12/03/18 Sucralfate [Carafate] 1 gm PO ACHS #60 tablet 12/03/18 - Allergies Allergies/Adverse Reactions: Allergies Allergy/AdvReac Type Severity Reaction Status Date / Time cefaclor [From Ceclor] Allergy Severe Edema Verified 01/13/20 10:58 methylergonovine maleate * Allergy Severe Respiratory Verified 01/13/20 10:58 [From Methergine] Latex, Natural Rubber Allergy Hives Verified 01/13/20 10:58 - Social History Does the pt smoke?: No Smoking Status: Former smoker Does the pt drink ETOH?: Yes Does the pt have substance abuse?: No - Immunizations Immunizations are current?: Yes - POLST Patient has POLST: No POLST Status: Full Code PD ED PE NORMAL - General General: Alert and oriented X 3, No acute distress - Neck Neck: Supple, no meningeal sign - Cardiac Cardiac: RRR, No murmur - Derm Derm: Normal color, Warm and dry, Other (2.5 cm V-shaped lack dorsum of right thumb between the MCP and DIP. Normal flexion and extension of digit against resistance. Brisk cap refill) Results - Vitals Vitals: Vital Signs - 24 hr 01/13/20 10:58 Temperature 36.4 C L Heart Rate 74 Respiratory 18 Rate Blood Pressure 147/88 H O2 Saturation 96 Oxygen O2 Source Room air Procedures - Laceration (location) right thumb Length in cm: 2.5 Wound type: Linear, Clean, Other (v-shaped) Neurovascular status: Sensory intact, Motor intact, Vascular intact Tendon involvement: Tendon intact Anesthesia: Lidocaine 1% Wound Preparation: Chlorhexadine, Irrigated copiously NS Skin layer closure: Nylon, Size #-0 - enter number (5), Sutures - enter # (4) Other: Patient tolerated well, No complications, Neurovascular intact, Dressing applied, Tetanus UTD Complexity: Simple PD MEDICAL DECISION MAKING - ED course Complexity details: reviewed results, considered differential, d/w patient ED course: 44-year-old female presents to the emergency department for evaluation of a right thumb laceration sustained when washing dishes. Neurovascular and tendon function is preserved. her tetanus is up-to-date. 4 sutures were placed in this wound for primary closure. Routine wound care and return precautions discussed. Departure - Departure Disposition: 01 Home, Self Care Clinical Impression: Thumb laceration Qualifiers: Encounter type: initial encounter Damage to nail status: without damage Foreign body presence: without foreign body Laterality: right Qualified Code(s): S61.011A - Laceration without foreign body of right thumb without damage to nail, initial encounter Condition: Stable Record reviewed to determine appropriate education?: Yes Instructions: ED Laceration Hand Comments: I think your thumb laceration will heal well. In 24 hours you may remove the bandage gently wash your laceration with warm soap and water, pat dry then apply any antibiotic ointment and a simple bandage. It will be important to prevent movement or flexion of the thumb over the next week as the sutures heal. Sutures should be removed in 7 to 10 days. If you have concerns of infection, redness swelling increased pain or red streaking please return to the emergency department for a second look.
[2020-01-13 12:21] VITALS: BP 150/85
== END 2020-01-13 12:21 | disposition home or self-care (01) ==
LOC: ED 10:50
DX: S61.011A Laceration without foreign body of right thumb without damage to nail, initial encounter (principal); W25.XXXA Contact with sharp glass, initial encounter; Y93.G1 Activity, food preparation and clean up; I10 Essential (primary) hypertension; Z87.891 Personal history of nicotine dependence
CPT/HCPCS: 12001; 99281; 99282; A9270

== ENCOUNTER 2020-07-18 10:38 | Emergency (ER) | payer MEDICAID ==
[2020-07-18] MEDS ORDERED: HYDROmorphone 1 MG/ML CARPUJECT IVP STA ×3 (12:00→14:10)
[2020-07-18] MEDS ORDERED: SODIUM CHLORIDE 0.9% 1,000 ML IV STA (12:00)
[2020-07-18] MEDS ORDERED: KETOROLAC 30 MG/ML VIAL IVP STA (12:00)
[2020-07-18] MEDS ORDERED: PROMETHAZINE INJ 25 MG in SODIUM CHLORIDE 0.9% 50 ML IV STA (12:00)
--- NOTE | 2020-07-18 12:03 | ED Physician Documentation ---
History of Present Illness - Stated complaint Stated Complaint: HEAD PX - Chief complaint Chief Complaint: General - History obtained from History obtained from: Patient - Additonal information Additional information: Patient comes emergency department chief complaint of headache for the last 2- 1/2 days. Patient states that she first began to notice the symptoms a couple of nights ago and at that time, had a dull pain at the top of her neck/base of her head. Patient states she has had headaches like this before and that it felt similar, so she did not think too much of it. She states she went to bed and expected to feel better in the morning, but when she woke up, the headache was even worse. She states it progressively spread up over the top of her head and through her temples and that it just feels like a throbbing pain. She states that also feels like there is "pressure in her brain" and that the sides of her brain are pushing on her skull. Patient denies any visual changes, numb ness, tingling, weakness, or dizziness. She has been quite nauseated but has not vomited. No fevers or chills. She denies any head injury. She states that she has 2 aunts on the same side the family who have had aneurysms, one in the brain and one in this fine. She is not known to have an aneurysm herself. No other complaints at this time. Review of Systems Ten Systems: 10 systems reviewed and negative Constitutional: reports: Reviewed and negative Eyes: reports: Reviewed and negative Ears: reports: Reviewed and negative Nose: reports: Reviewed and negative Throat: reports: Reviewed and negative Cardiac: reports: Reviewed and negative Respiratory: reports: Reviewed and negative GI: reports: Nausea : reports: Reviewed and negative Skin: reports: Reviewed and negative Musculoskeletal: reports: Reviewed and negative Neurologic: reports: Headache. 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: section, Dilation and currettage, Tubal ligation, Hysterectomy, Oophrectomy HEENT: Tonsil/Adenoidectomy - Present Medications Home Medications: Ambulatory Orders Medication Instructions Recorded Confirmed Cetirizine [ZyrTEC] 10 mg DAILY 01/17/17 07/18/20 Trazodone HCl 100 mg PO QPM PRN 12/10/17 07/18/20 Acetaminophen/Cod 300/30 [Tylenol 2 each PO Q4-6H PRN #8 tablet 07/18/20 #3] Ondansetron Odt [Zofran] 4 mg TL Q6H PRN #10 tablet 07/18/20 - Allergies Allergies/Adverse Reactions: Allergies Allergy/AdvReac Type Severity Reaction Status Date / Time cefaclor [From Ceclor] Allergy Severe Edema Verified 07/18/20 10:49 methylergonovine maleate * Allergy Severe Respiratory Verified 07/18/20 10:49 [From Methergine] Latex, Natural Rubber Allergy Hives Verified 07/18/20 10:49 - Social History Does the pt smoke?: No Smoking Status: Never smoker Does the pt drink ETOH?: Yes Does the pt have substance abuse?: No - Immunizations Immunizations are current?: Yes - POLST Patient has POLST: No POLST Status: Full Code PD ED PE NORMAL - Vitals Vital signs reviewed: Yes - General General: Alert and oriented X 3, No acute distress, Well developed/nourished - HEENT HEENT: Atraumatic, PERRL, EOMI, Moist mucous membranes - Neck Neck: Supple, no meningeal sign, No bony TTP, No adenopathy - Cardiac Cardiac: RRR, No murmur, Strong equal pulses - Respiratory Respiratory: No respiratory distress, Clear bilaterally - Abdomen Abdomen: Soft, Non tender, Non distended - Back Back: No spinal TTP - Derm Derm: Normal color, Warm and dry, No rash - Extremities Extremities: No deformity - Neuro Neuro: Alert and oriented X 3, 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, No motor deficit, No sensory deficit, Normal speech - Psych Psych: Normal mood, Normal affect Results - Vitals Vitals: Vital Signs - 24 hr 07/18/20 07/18/20 07/18/20 10:44 11:40 12:44 Temperature 36.9 C Heart Rate 76 80 72 Respiratory 16 17 15 Rate Blood Pressure 150/85 H 139/84 H 153/103 H O2 Saturation 99 96 99 07/18/20 13:50 Temperature Heart Rate 76 Respiratory 14 Rate Blood Pressure 121/76 O2 Saturation 96 Oxygen O2 Source Room air PD MEDICAL DECISION MAKING - ED course Complexity details: considered differential, d/w patient ED course: I discussed with the patient that she may have a combination of tension and migraine headache, given that this has come up gradually, but not over a very prolonged period of time, and that she does not have any other concerning symptoms. The patient's history and symptoms do not indicate a ruptured aneurysm at this time. We have discussed that we could get a CT scan today to get a look at the patient's brain. However, the patient wants to try symptomatic treatment first, and she has had headaches like this previously. The patient was treated symptomatically with IV fluids, Phenergan, Toradol, and Dilaudid, after which she was found to be feeling better. We have discussed home management of symptoms, as well as the usual indications for return. Departure - Departure Disposition: 01 Home, Self Care Clinical Impression: Headache Qualifiers: Headache type: unspecified Headache chronicity pattern: acute headache Intractability: not intractable Qualified Code(s): R51.9 - Headache, unspecified Condition: Stable Instructions: ED Cephalgia Unspecified Prescriptions: Acetaminophen/Cod 300/30 [Tylenol #3] 2 each PO Q4-6H PRN #8 tablet PRN Reason: Pain Ondansetron Odt [Zofran] 4 mg TL Q6H PRN #10 tablet PRN Reason: Nausea / Vomiting Comments: You have been given sedating medications as part of your treatment in the emergency department. Please do not drive or use heavy equipment or power tools for the next 12 hours.
[2020-07-18 14:29] VITALS: BP 137/88
--- OUTSIDE RECORDS SUMMARY | 2020-07-21 02:42 | EXTERNAL MEDICAL SUMMARY RPT | Continuity of Care Document ---
:1975 Demographics Phone Unavailable Preferred Language Unknown Marital Status Unknown [employer] Affiliation Unknown Race Unknown Ethnic Group Unknown Author Organization [facility] Address [address] [phone] Phone Social History date description facility [phone]
== END 2020-07-18 14:48 | disposition home or self-care (01) ==
LOC: ED 10:38
DX: R51.9 Headache, unspecified (principal); I10 Essential (primary) hypertension
CPT/HCPCS: 96365; 96375; 96376; 99283; 99284; J1170; J7040

== ENCOUNTER 2020-11-23 09:04 | Emergency (ER) | payer MEDICAID ==
--- NOTE | 2020-11-23 10:44 | ED Physician Documentation ---
PD HPI DYSPNEA - Stated complaint Stated Complaint: SOB, HEADACHE, BODY ACHES - Chief complaint Chief Complaint: Resp - History obtained from History obtained from: Patient - History of Present Illness Timing - onset: How many weeks ago (1) Timing - onset during: Light activity Timing - duration: Weeks (1) Timing - details: Gradual onset, Still present Inciting event(s): URI (has had congestion, cough and dyspnea. History of intermittent asthma.) Improved by: Inhaler/neb Associated symptoms: Cough, Wheezing. No: Fever, Hemoptysis, Chest pain / discomfort, Palpitations, Bilateral edema Similar symptoms before: Diagnosis (asthma exac with URIs.) Recently seen: Not recently seen Review of Systems Constitutional: reports: Myalgias. denies: Fever, Chills Nose: reports: Congestion. denies: Rhinorrhea / runny nose Throat: denies: Sore throat Cardiac: denies: Chest pain / pressure, Palpitations, Pedal edema Respiratory: reports: Dyspnea, Cough, Wheezing GI: reports: Nausea. denies: Vomiting, Diarrhea Skin: denies: Rash, Lesions Neurologic: reports: Generalized weakness, Headache PD PAST MEDICAL HISTORY - Past Medical History Past Medical History: Yes Cardiovascular: Hypertension, Other Respiratory: Asthma, Sleep apnea, CPAP use Neuro: Migraines Endocrine/Autoimmune: None GI: GERD, Other IRON MINER: Endometriosis : None HEENT: None Psych: Depression, Anxiety Musculoskeletal: Chronic back pain Derm: None - Past Surgical History Past Surgical History: Yes General: Cholecystectomy Ortho: ACL reconstruction /IRON MINER: section, Dilation and currettage, Tubal ligation, Hysterectomy, Oophrectomy HEENT: Tonsil/Adenoidectomy - Present Medications Home Medications: Ambulatory Orders Medication Instructions Recorded Confirmed Cetirizine [ZyrTEC] 10 mg DAILY 01/17/17 11/23/20 Trazodone HCl 100 mg PO QPM PRN 12/10/17 11/23/20 Albuterol Sulfate [Proair Hfa 3 - 4 puffs INH Q4H PRN #1 gm 11/23/20 Inhaler] Benzonatate [Tessalon] 100 mg PO TID PRN #20 cap 11/23/20 dexAMETHasone [Decadron] 4 mg PO DAILY #5 tablet 11/23/20 hydrOXYzine pamoate [Vistaril] 50 mg PO DAILY PRN 11/23/20 11/23/20 - Allergies Allergies/Adverse Reactions: Allergies Allergy/AdvReac Type Severity Reaction Status Date / Time cefaclor [From Ceclor] Allergy Severe Edema Verified 11/23/20 09:11 methylergonovine maleate * Allergy Severe Respiratory Verified 11/23/20 09:11 [From Methergine] Latex, Natural Rubber Allergy Hives Verified 11/23/20 09:11 - Social History Does the pt smoke?: No Smoking Status: Never smoker Does the pt drink ETOH?: Yes Does the pt have substance abuse?: Yes Substance Use and Type: Marijuana - Immunizations Immunizations are current?: Yes - POLST Patient has POLST: No POLST Status: Full Code PD ED PE NORMAL - Vitals Vital signs reviewed: Yes - General General: Alert and oriented X 3, No acute distress, Well developed/nourished - HEENT HEENT: Pharynx benign - Neck Neck: Supple, no meningeal sign - Cardiac Cardiac: RRR, No murmur - Respiratory Respiratory: No: Clear bilaterally (no coarse sounds; has exp wheezing noted diffusely. No prolonged exp phase. ) - Derm Derm: Normal color, Warm and dry - Extremities Extremities: No tenderness to palpate, No edema, No calf tenderness / cord Results - Vitals Vitals: Oxygen O2 Source Room air - Labs Labs: Laboratory Tests 11/23/20 11:20 Coronavirus (PCR) NEGATIVE - Rads (name of study) chest xray Radiology: Prelim report reviewed (no infiltrates), See rad report PD MEDICAL DECISION MAKING - ED course Complexity details: reviewed results, re-evaluated patient (improved), considered differential, d/w patient Departure - Departure Disposition: 01 Home, Self Care Clinical Impression: Upper respiratory infection Qualifiers: URI type: unspecified URI Qualified Code(s): J06.9 - Acute upper respiratory infection, unspecified Exacerbation of asthma Qualifiers: Asthma severity: mild Asthma persistence: intermittent Qualified Code(s): J45.21 - Mild intermittent asthma with (acute) exacerbation Condition: Stable Record reviewed to determine appropriate education?: Yes Follow-Up: Azul Bullock MD [Primary Care Provider] - Prescriptions: dexAMETHasone [Decadron] 4 mg PO DAILY #5 tablet Albuterol Sulfate [Proair Hfa Inhaler] 3 - 4 puffs INH Q4H PRN #1 gm PRN Reason: Shortness Of Air/Wheezing Benzonatate [Tessalon] 100 mg PO TID PRN #20 cap PRN Reason: Cough Comments: Your chest x-ray is clear without any signs of pneumonia. Your oxygenation level is good. Your Covid test should result the next day or two. Rest at home for the next day or two. Use your albuterol inhaler 3 to 4 puffs four times a day for the next several days to week and then as needed. Decadron steroid daily for the next five more days. Add Tessalon if needed for cough. Tylenol if needed for aches or fevers. Hopefully this is just a mild viral illness otherwise flaring your asthma. Discharge Date/Time: 11/23/20 13:04
[2020-11-23] MEDS: ALBUTEROL 1 PUFF INH STA (11:19)
[2020-11-23] MEDS: DEXAMETHASONE 10 MG/ML VIAL PO STA (11:24)
[2020-11-23] MEDS: CHERRY SYRUP 10 ML UDC PO ONE (11:24)
--- NOTE | 2020-11-23 11:40 | XRAY Report ---
PROCEDURE: Chest 2 View X-Ray INDICATIONS: dyspnea/ cough TECHNIQUE: 2 views of the chest. COMPARISON: 01/17/2017. FINDINGS: Surgical changes and devices: None. Lungs and pleura: No pleural effusions or pneumothorax. Lungs are clear. Mediastinum: Mediastinal contours are normal. Heart size is normal. Bones and chest wall: No suspicious bony abnormalities. Soft tissues appear unremarkable. IMPRESSION: 1. No acute cardiopulmonary disease. Reviewed by: Magdy Castro MD on 11/23/2020 11:33 AM PDT Approved by: Magdy Castro MD on 11/23/2020 11:33 AM PDT Station ID: [id number]
[2020-11-23 13:04] VITALS: BP 149/100
== END 2020-11-23 13:04 | disposition home or self-care (01) ==
LOC: ED 09:04
DX: J45.21 Mild intermittent asthma with (acute) exacerbation (principal); J06.9 Acute upper respiratory infection, unspecified; I10 Essential (primary) hypertension; Z20.822 Contact with and (suspected) exposure to COVID-19
CPT/HCPCS: 71046; 87635; 94640; 94664; 99283; A9270

== ENCOUNTER 2020-12-22 08:26 | Outpatient (CLI) | payer MEDICAID ==
--- NOTE | 2020-12-22 09:03 | SLEEP CARE CONSULTATION ---
Information from patient questionnaire entered by Gris Anaya. I have reviewed and concur with the information entered by Gris Anaya. This document represents the service I personally performed and the decisions made by , Stephanie Crow ARNP. History of Present Illness Service Date and Time: 12/22/2020 08 Previous diagnosis: Moderate, Obstructive Sleep Apnea-Hypopnea Syndrome AHI: 27.1 (in 2013) Reason for follow up: annual (last seen 12/2019) Equipment type: CPAP Equipment obtained from: [employer] (getting supplies as needed; would like to switch) Mask style: Nasal Mask brand: Respironics (Wisp) Backup mask available: No (will keep old mask when replaced) Last cushion change: February Prior sleep studies: Yes Year and Where: 2013 - [facility] Type of Sleep Study: Polysomnography HPI additional information: PARRISH VINCENT was diagnosed to have moderate, AHI 27.1, obstructive sleep apnea- hypopnea syndrome and returned today for CPAP therapy annual follow-up. CPAP Compliance Data - Data Reviewed with Patient Average duration of nightly device use: 9 hr 8 min Compliance rate %: 99.4 (180 days) Current pressure setting (cmH2O): 10-15 Humidity settin Heated hose settin Average residual AHI: 0.4 Average large leak: 51 sec Subjective Patient concerns: reports: mask leak noise, condensation in mask/hose, other (headache, last 2 weeks and could be to muscle pain in shoulder). denies: aerophagia, mask discomfort, air blowing in eyes, nasal congestion, dry mouth, nose, throat, epistaxis Observed to snore while using device: No Current pressure setting perceived as: comfortable On therapy, patient: reports: sleeping better, awakening more refreshed, being more awake and alert during the day, more rested overall. denies: drowsiness while driving Initial [place] Sleepiness Scale score: 4 (in 2013) Current [place] Sleepiness Scale score: 3 Allergies and Home Medications Home medication list reviewed: Yes (stopped lisinopril, effexor; still using trazodone) Review of Systems Review of systems same as previous: Yes (no changes) Physical Exam Heart Rate: 69 O2 Saturation: 98 Height: 5 ft 7 in Weight: 296 lb Body Mass Index: 46.3 BMI Classification: Morbidly Obese Impression and Plan 1. Obstructive Sleep Apnea-Hypopnea Syndrome, moderate, with excellent treatment compliance and excellent apnea control. On CPAP therapy, the patient has better sleep quality and is more rested overall. Patient would like to change her DME company because she is unable to work with current one since they are not more local and she is having difficulty getting adequate supplies. I will have my public relations coordinator inform of DME options. A DWO prescription will then be made. Patient advised to contact this office if further supply problems. Patient asking about the recall and using her device. Patient has already registered their device for the recall. Patient denies any black particles seen in machine or hoses, any unusual odors coming from device. Patient has not experienced any physical symptoms such as upper airway irritation, headache, skin or eye irritation, asthma, nausea/vomiting, difficulty breathing or chest pain. Patient informed that they may use an inline CPAP filter that they can obtain online to reduce chance of any particles being inhaled or ingested. We discussed thoroughly the health risks of not using the CPAP versus continuing use with the filter in place. If patient is not able to sleep due to waking up choking, gasping for air or other respiratory distress that they may decide to continue using it until it is either replaced or repaired. Patient states she cannot sleep without using her device and will continue with caution. Patient voiced understanding and agreement with plan. Patient advised to try to lose weight and she voiced understanding. Patient's apnea severity and rationale for treatment to reduce apnea, improve sleep quality and reduce cardiovascular and cerebrovascular events was reviewed. I also reviewed the benefit of consistent device use of CPAP for hypertension, depression and anxiety. * Continue auto CPAP pressure at 10-15 cmH2O * Transfer DME * Update supplies * Notify me if snoring with mask or feeling that the pressure is too much or too little * Attempt to lose weight * Call this office if any problems using CPAP * Return for follow up in 1 year, or sooner if concerns arise Counseling Topics: Spare mask, Weight loss health impact Visit Type: In Office Time Spent with Patient (minutes): 22 Provider Statement: I spent 100% of the Face to Face Visit with the patient with greater than 50% spent counseling the patient and coordination of care.
== END 2020-12-22 08:27 | disposition home or self-care (01) ==
LOC: SC 08:26
PROVIDERS: ATTEND Nurse Practitioner Family
DX: G47.33 Obstructive sleep apnea (adult) (pediatric) (principal); E66.01 Morbid (severe) obesity due to excess calories; Z68.42 Body mass index [BMI] 45.0-49.9, adult
CPT/HCPCS: 99212; 99213

== ENCOUNTER 2021-08-04 13:06 | Outpatient (CLI) | payer MEDICAID | END 2021-08-04 13:07 | disposition home or self-care (01) | LOC: NS 13:06 | PROVIDERS: ATTEND Family Medicine | DX: Z71.3 Dietary counseling and surveillance (principal); E11.69 Type 2 diabetes mellitus with other specified complication; E78.5 Hyperlipidemia, unspecified; E66.01 Morbid (severe) obesity due to excess calories; Z68.41 Body mass index [BMI] 40.0-44.9, adult | CPT/HCPCS: 97802 ==

== ENCOUNTER 2021-08-25 12:52 | Outpatient (CLI) | payer MEDICAID | END 2021-08-25 12:53 | disposition home or self-care (01) | LOC: NS 12:52 | PROVIDERS: ATTEND Family Medicine | DX: Z71.3 Dietary counseling and surveillance (principal); E11.69 Type 2 diabetes mellitus with other specified complication; E78.5 Hyperlipidemia, unspecified; E66.01 Morbid (severe) obesity due to excess calories; Z68.41 Body mass index [BMI] 40.0-44.9, adult | CPT/HCPCS: 97803 ==

== ENCOUNTER 2021-09-06 07:22 | Outpatient (CLI) | payer MEDICAID ==
[2021-09-06 07:40] LABS: HCT - HEMATOCRIT 41.9 % (37.0-47.0); HGB - HEMOGLOBIN 13.9 g/dL (12.0-16.0); MEAN CORPUSCULAR HEMOGLOBIN 27.3 pg (27.0-31.0); MEAN CORPUSCULAR HGB CONC 33.2 g/dL (32.0-36.0); MEAN CORPUSCULAR VOLUME 82.2 fL (81.0-99.0); MEAN PLATELET VOLUME 9.8 fL (7.9-10.8); RED BLOOD COUNT 5.1 10^6/uL (4.20-5.40); RED CELL DISTRIBUTION WIDTH 13.2 % (12.0-15.0); WHITE BLOOD COUNT 9.2 x10^3/uL (4.8-10.8)
[2021-09-06 08:02] LABS: ALBUMIN 4.2 g/dL (3.2-5.5); ALBUMIN/GLOBULIN RATIO 1.5 (1.0-2.2); ALKALINE PHOSPHATASE 39 IU/L (42-121); ALT ALANINE AMINOTRANSFERASE 30 IU/L (10-60); AST ASPARTATE AMINOTRANSFERASE 19 IU/L (10-42); BILIRUBIN,TOTAL 0.9 mg/dL (0.2-1.0); BUN - BLOOD UREA NITROGEN 11 mg/dL (6-20); CALCIUM 9.2 mg/dL (8.5-10.3); CARBON DIOXIDE - CO2 22 mmol/L (21-32); CHLORIDE 106 mmol/L (101-111); CHOL/HDL RATIO 4.6 (<4.4); CHOLESTEROL 196 mg/dL; CREATININE 0.7 mg/dL (0.4-1.0); GFR - MDRD 90 (>89); GLUCOSE 127 mg/dL (70-100); HDL CHOLESTEROL 43 mg/dL; LDL CHOLESTEROL,CALCULATED 121 mg/dL; LDL/HDL RATIO 2.8 (<4.4); POTASSIUM 3.8 mmol/L (3.5-5.0); SODIUM 137 mmol/L (135-145); TRIGLYCERIDES 158 mg/dL; VLDL CHOLESTEROL 32 mg/dL
[2021-09-06 08:12] LABS: THYROID STIMULATING HORMONE 1.78 uIU/mL (0.34-5.60)
[2021-09-06 12:27] LABS: ESTIMATED AVERAGE GLUCOSE 123 mg/dL (70-100); HEMOGLOBIN A1c% 5.9 % (4.27-6.07)
[2021-09-07 08:18] LABS: HIV SCREEN 4TH GENERATION Non Reactive (Non Reactive)
== END 2021-09-06 07:23 | disposition home or self-care (01) ==
LOC: LAB 07:22
PROVIDERS: ATTEND Family Medicine
DX: Z00.00 Encounter for general adult medical examination without abnormal findings (principal); E11.69 Type 2 diabetes mellitus with other specified complication; E78.5 Hyperlipidemia, unspecified; Z11.4 Encounter for screening for human immunodeficiency virus [HIV]; E66.01 Morbid (severe) obesity due to excess calories
CPT/HCPCS: 36415; 80053; 80061; 82043; 82570; 82607; 83036; 83721; 84443; 85027; 87389

== ENCOUNTER 2021-10-06 10:07 | Outpatient (CLI) | payer MEDICAID | END 2021-10-06 10:08 | disposition home or self-care (01) | LOC: NS 10:07 | PROVIDERS: ATTEND Family Medicine | DX: Z71.3 Dietary counseling and surveillance (principal); E11.69 Type 2 diabetes mellitus with other specified complication; E78.5 Hyperlipidemia, unspecified | CPT/HCPCS: 97803 ==

== ENCOUNTER 2021-11-10 11:21 | Outpatient (CLI) | payer MEDICAID | END 2021-11-10 11:22 | disposition home or self-care (01) | LOC: NS 11:21 | PROVIDERS: ATTEND Family Medicine | DX: Z71.3 Dietary counseling and surveillance (principal); E11.69 Type 2 diabetes mellitus with other specified complication; E78.5 Hyperlipidemia, unspecified; E66.01 Morbid (severe) obesity due to excess calories; Z68.41 Body mass index [BMI] 40.0-44.9, adult | CPT/HCPCS: 97803 ==

== ENCOUNTER 2021-12-26 10:53 | Outpatient (CLI) | payer MEDICAID | END 2021-12-26 10:54 | disposition home or self-care (01) | LOC: NS 10:53 | PROVIDERS: ATTEND Family Medicine | DX: E11.69 Type 2 diabetes mellitus with other specified complication (principal); E78.5 Hyperlipidemia, unspecified; E66.01 Morbid (severe) obesity due to excess calories; Z71.3 Dietary counseling and surveillance; Z71.89 Other specified counseling; Z68.41 Body mass index [BMI] 40.0-44.9, adult | CPT/HCPCS: 97803 ==

== ENCOUNTER 2022-01-06 11:07 | Outpatient (CLI) | payer MEDICAID | END 2022-01-06 11:08 | disposition home or self-care (01) | LOC: NS 11:07 | PROVIDERS: ATTEND Family Medicine | DX: Z71.3 Dietary counseling and surveillance (principal); E11.69 Type 2 diabetes mellitus with other specified complication; E78.5 Hyperlipidemia, unspecified | CPT/HCPCS: 97803 ==

== ENCOUNTER 2022-01-27 10:59 | Outpatient (CLI) | payer MEDICAID | END 2022-01-27 11:00 | disposition home or self-care (01) | LOC: NS 10:59 | PROVIDERS: ATTEND Family Medicine | DX: E11.69 Type 2 diabetes mellitus with other specified complication (principal); E78.5 Hyperlipidemia, unspecified; E66.01 Morbid (severe) obesity due to excess calories; Z71.3 Dietary counseling and surveillance; Z71.89 Other specified counseling; Z68.41 Body mass index [BMI] 40.0-44.9, adult | CPT/HCPCS: 97803 ==

== ENCOUNTER 2022-02-10 10:55 | Outpatient (CLI) | payer MEDICAID | END 2022-02-10 10:56 | disposition home or self-care (01) | LOC: NS 10:55 | PROVIDERS: ATTEND Family Medicine | DX: Z71.3 Dietary counseling and surveillance (principal); E11.69 Type 2 diabetes mellitus with other specified complication; E78.5 Hyperlipidemia, unspecified; E66.01 Morbid (severe) obesity due to excess calories; Z68.41 Body mass index [BMI] 40.0-44.9, adult | CPT/HCPCS: 97803 ==

== ENCOUNTER 2022-02-23 11:31 | Outpatient (CLI) | payer MEDICAID | END 2022-02-23 11:32 | disposition home or self-care (01) | LOC: NS 11:31 | PROVIDERS: ATTEND Family Medicine | DX: Z71.3 Dietary counseling and surveillance (principal); E11.69 Type 2 diabetes mellitus with other specified complication; E78.5 Hyperlipidemia, unspecified; E66.01 Morbid (severe) obesity due to excess calories; Z68.41 Body mass index [BMI] 40.0-44.9, adult | CPT/HCPCS: 97803 ==

== ENCOUNTER 2022-03-07 10:46 | Outpatient (CLI) | payer MEDICAID | END 2022-03-07 10:47 | disposition home or self-care (01) | LOC: NS 10:46 | PROVIDERS: ATTEND Family Medicine | DX: Z71.3 Dietary counseling and surveillance (principal); E11.69 Type 2 diabetes mellitus with other specified complication; E78.5 Hyperlipidemia, unspecified; E66.01 Morbid (severe) obesity due to excess calories; Z68.41 Body mass index [BMI] 40.0-44.9, adult | CPT/HCPCS: 97803 ==

== ENCOUNTER 2022-04-24 01:47 | Outpatient (CLI) | payer MEDICAID | END 2022-04-24 01:48 | disposition critical access hospital (66) | LOC: EMS 01:47 | DX: R55 Syncope and collapse (principal) | CPT/HCPCS: A0425; A0429; A0999 ==

== ENCOUNTER 2022-04-24 01:55 | Emergency (ER) | payer MEDICAID ==
[2022-04-24] MEDS ORDERED: SODIUM CHLORIDE 0.9% 1,000 ML IV STA (02:01)
--- NOTE | 2022-04-24 02:04 | ED Physician Documentation ---
History of Present Illness - Stated complaint Stated Complaint: SYNCOPE - Chief complaint Chief Complaint: Neuro - History obtained from History obtained from: Patient, EMS - Additonal information Additional information: 47-year-old woman with history of diabetes and constipation presents with Syncopal episode about 30 minutes prior to arrival. Patient was straining on the toilet to have a bowel movement and then stood up suddenly and felt lightheaded, a wave of nausea with black spots.She did hit her head and came back to consciousness quickly as witnessed by her significant other. Patient is not on anticoagulation and denies pain anywhere.Note that on EMS arrival patient had normal fingerstick blood sugar and did have a 15 point drop in systolic blood pressure when going from sitting to standing up. Patient denies feeling ill this week but does state that she is experiencing some rectal pain and thinks that she has developed hemorrhoids. Review of Systems Constitutional: denies: Fever Cardiac: denies: Chest pain / pressure Respiratory: denies: Dyspnea Musculoskeletal: denies: Neck pain Neurologic: reports: Syncope. 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: Endometriosis : None HEENT: None Psych: Depression, Anxiety Musculoskeletal: Chronic back pain Derm: None - Past Surgical History Past Surgical History: Yes General: Cholecystectomy Ortho: ACL reconstruction /INVERTER [employer] CLIPPER: section, Dilation and currettage, Tubal ligation, Hysterectomy, Oophrectomy HEENT: Tonsil/Adenoidectomy - Present Medications Home Medications: Ambulatory Orders Medication Instructions Recorded Confirmed Cetirizine [ZyrTEC] 10 mg DAILY 01/17/17 04/24/22 Trazodone HCl 100 mg PO QPM PRN 12/10/17 04/24/22 Albuterol Sulfate [Proair Hfa 3 - 4 puffs INH Q4H PRN #1 gm 11/23/20 Inhaler] ALPRAZolam [Xanax] 1 tab PO DAILY PRN 04/24/22 04/24/22 Baclofen [Lioresal] 10 mg PO DAILY 04/24/22 04/24/22 Eszopiclone [Lunesta] 2 mg PO QPM 04/24/22 04/24/22 Gabapentin [Neurontin] 300 mg PO TID 04/24/22 04/24/22 Hydrocortisone Supp [Anusol-Hc] 25 mg RC QPM PRN #15 supp 04/24/22 Liraglutide [Victoza 2-Isaac] 1.2 mg SUBQ DAILY 04/24/22 04/24/22 Sennosides/Docusate Sodium 1 each PO QDAC PRN #30 tablet 04/24/22 [Senna-Docusate Sodium Tablet] traMADol [Ultram] 50 mg PO BID PRN 04/24/22 04/24/22 - Allergies Allergies/Adverse Reactions: Allergies Allergy/AdvReac Type Severity Reaction Status Date / Time cefaclor [From Ceclor] Allergy Severe Edema Verified 04/24/22 02:06 methylergonovine maleate * Allergy Severe Respiratory Verified 04/24/22 02:06 [From Methergine] Latex, Natural Rubber Allergy Hives Verified 04/24/22 02:06 - Social History Does the pt smoke?: No Smoking Status: Never smoker Does the pt drink ETOH?: Yes Does the pt have substance abuse?: Yes - Immunizations Immunizations are current?: Yes - POLST Patient has POLST: No POLST Status: Full Code PD ED PE NORMAL - Vitals Vital signs reviewed: Yes - General General: Alert and oriented X 3, No acute distress, Well developed/nourished - HEENT HEENT: Atraumatic, PERRL, EOMI - Neck Neck: No bony TTP - Cardiac Cardiac: RRR - Respiratory Respiratory: No respiratory distress, Clear bilaterally - Abdomen Abdomen: Non tender, Non distended - Rectal Rectal: Other (external nonthrombosed hemorrhoids) - Derm Derm: Normal color, Warm and dry - Neuro Neuro: No motor deficit, No sensory deficit - Psych Psych: Normal mood, Normal affect Results - Vitals Vitals: Vital Signs - 24 hr 04/24/22 04/24/22 01:59 02:50 Temperature 35.8 C L Heart Rate 90 Heart Rate [ 97 Sitting] Heart Rate [ 97 Standing] Heart Rate [ 88 Supine] Respiratory 16 Rate Blood Pressure 137/90 H Blood Pressure 130/83 H [Sitting] Blood Pressure 116/81 H [Standing] Blood Pressure 137/71 H [Supine] O2 Saturation 97 Oxygen O2 Source Room air - EKG (time done) 0207 Rate: Rate (enter#) (83) Rhythm: NSR Intervals: Prolonged QT (431 with [id number]) - Labs Labs: Laboratory Tests 04/24/22 04/24/22 02:29 02:29 WBC 13.4 H RBC 5.11 Hgb 13.8 Hct 42.1 MCV 82.4 MCH 27.0 MCHC 32.8 RDW 12.8 Plt Count 262 MPV 9.7 Neut # (Auto) 8.7 H Lymph # (Auto) 3.3 [place] # (Auto) 1.1 H Eos # (Auto) 0.2 Baso # (Auto) 0.1 Absolute Nucleated RBC 0.00 Nucleated RBC % 0.0 Sodium 139 Potassium 3.6 Chloride 103 Carbon Dioxide 27 Anion Gap 9.0 BUN 8 Creatinine 0.7 Estimated GFR (MDRD) 89 Glucose 125 H Calcium 8.9 Total Bilirubin 0.7 AST 20 ALT 34 Alkaline Phosphatase 40 L Total Protein 7.0 Albumin 3.9 Globulin 3.1 Albumin/Globulin Ratio 1.3 Lipase 22 PD Medical Decision Making - ED course ED course: 47-year-old woman presents with fainting episode after straining to have a bowel movement. Her work-up here in the emergency department is normal and focal without any emergent findings. Patient had orthostatic vital signs with 21 point drop in SBP from supine to standing, thus 1L IVF was provided with improvement. Symptomatic care discussed and return precautions given. Plan to follow-up with her primary care provider. Departure - Departure Disposition: 01 Home, Self Care Clinical Impression: Hemorrhoids, Orthostatic hypotension, Syncope Condition: Good Instructions: ANUSOL Suppositories, ED Hypotension Orthostatic Prescriptions: Hydrocortisone Supp [Anusol-Hc] 25 mg RC QPM PRN #15 supp PRN Reason: Hemorrhoids Sennosides/Docusate Sodium [Senna-Docusate Sodium Tablet] 1 each PO QDAC PRN #30 tablet PRN Reason: Constipation Comments: You were seen in the emergency department after fainting when getting off the toilet. your work-up in the emergency department uncovered no emergent cause for your symptoms. Make sure that you drink lots of water and get lots of rest this week. You can use Anusol [id number] rectal suppositories for relief of hemorrhoid pain. You should also consider taking MiraLAX and senna/docusate which are [id number]-hks-[id number] bowel regimens. Return to the emergency department if you have any new or worsening symptoms or concerns. Follow-up with your primary care provider Note that you had prescription sent to [employer] [facility] electronically.
[2022-04-24 02:34] LABS: BASOPHILS # (AUTO) 0.1 10^3/uL (0.0-0.1); BASOPHILS % (AUTO) 0.7 %; EOSINOPHILS # (AUTO) 0.2 10^3/uL (0.0-0.7); EOSINOPHILS % (AUTO) 1.4 %; HCT - HEMATOCRIT 42.1 % (37.0-47.0); HGB - HEMOGLOBIN 13.8 g/dL (12.0-16.0); LYMPHOCYTES # (AUTO) 3.3 10^3/uL (1.5-3.5); LYMPHOCYTES % (AUTO) 24.4 %; MEAN CORPUSCULAR HGB CONC 32.8 g/dL (32.0-36.0); MEAN CORPUSCULAR VOLUME 82.4 fL (81.0-99.0); MEAN PLATELET VOLUME 9.7 fL (7.9-10.8); MONOCYTES # (AUTO) 1.1 10^3/uL (0.0-1.0); MONOCYTES % (AUTO) 8.4 %; NEUTROPHILS # (AUTO) 8.7 10^3/uL (1.5-6.6); NEUTROPHILS % (AUTO) 64.6 %; PLT - PLATELET COUNT 262 10^3/uL (130-450); RED BLOOD COUNT 5.11 10^6/uL (4.20-5.40); RED CELL DISTRIBUTION WIDTH 12.8 % (12.0-15.0); WHITE BLOOD COUNT 13.4 x10^3/uL (4.8-10.8)
[2022-04-24 02:54] LABS: ALBUMIN 3.9 g/dL (3.2-5.5); ALBUMIN/GLOBULIN RATIO 1.3 (1.0-2.2); BILIRUBIN,TOTAL 0.7 mg/dL (0.2-1.0); CALCIUM 8.9 mg/dL (8.5-10.3); CREATININE 0.7 mg/dL (0.4-1.0); POTASSIUM 3.6 mmol/L (3.5-5.0)
[2022-04-24 03:15] VITALS: BP 116/81
== END 2022-04-24 03:13 | disposition home or self-care (01) ==
LOC: EDUNIT# → ED 01:55
DX: I95.1 Orthostatic hypotension (principal); K64.9 Unspecified hemorrhoids; I10 Essential (primary) hypertension
CPT/HCPCS: 36415; 80053; 83690; 85025; 93005; 96360; 99284

== ENCOUNTER 2022-05-22 16:26 | Outpatient (CLI) | payer MEDICAID ==
[2022-05-22 12:15] VITALS: BP 120/80
--- NOTE | 2022-05-22 12:15 | SLEEP CARE CONSULTATION ---
Information from patient questionnaire entered by Mariaa Leon. I have reviewed and concur with the information entered by Mariaa Leon. This document represents the service I personally performed and the decisions made by me, Lucas Iraheta MD, [facility]. History of Present Illness Service Date and Time: 05/22/2022 1140 Previous diagnosis: Moderate, Obstructive Sleep Apnea-Hypopnea Syndrome AHI: 27.1 (in 2013) Reason for follow up: annual (LAST SEEN 12/2020) Equipment type: CPAP (RESMED) Equipment obtained from: [email or web address] (getting supplies as needed; would like to switch) Mask style: Nasal Prior sleep studies: Yes Year and Where: 2013 - [facility] Type of Sleep Study: Polysomnography HPI additional information: Ms. Randle returned today for annual follow up of nasal CPAP therapy. She was diagnosed to have moderate obstructive sleep apnea-hypopnea syndrome. The patient gets her supplies from [email or web address]. She wears a nasal mask. She continues to use the device nightly and all through the night. The compliance report shows usage in 362 nights out of the past 365 nights, averaging 9.2 hours a night. She complained of no particular problem with the device such as soreness on the face, dry nose, epistaxis, nasal congestion or headache. She thinks that the pressure of 12 - 16 cmH2O is comfortable. On the CPAP therapy she notices improvement in her sleep quality, and that she wakes up feeling fresher in the morning and more awake/alert during the day. Her notices no snore at all. The average residual AHI is 0.5; and average air leak is 0 L/minute. The 90th percentile pressure is 12.9 cmH2O. Sleep Study - Results Type of Sleep Study: Polysomnography Prior sleep studies: Yes Year and Where: 2013 - [facility] CPAP Compliance Data - Data Reviewed with Patient Average duration of nightly device use: 9HRS 23MIN Compliance rate %: 99 (11/20/21-05/18/22) Current pressure setting (cmH2O): 12-16 Average residual AHI: 0.5 Subjective Initial [place] Sleepiness Scale score: 4 (in 2013) Current [place] Sleepiness Scale score: 0 (05/22/22) Allergies and Home Medications Drug allergies reviewed: Yes Home medication list reviewed: Yes Allergy and home medication list: Allergies cefaclor [From Ceclor] Allergy (Severe, Verified 04/24/22 02:06) Edema methylergonovine maleate * [From Methergine] Allergy (Severe, Verified 04/24/22 02:06) Respiratory Latex, Natural Rubber Allergy (Verified 04/24/22 02:06) Hives Review of Systems Review of systems same as previous: Yes Physical Exam Vital signs obtained and entered by: VIA PHONE MARIAA Ferguson MA Blood Pressure: 120/80 (PER PT) Height: 5 ft 7 in (PER PT) Weight: 270 lb (PER PT) Body Mass Index: 42.3 BMI Classification: Morbidly Obese Impression and Plan IMPRESSION: 1. Obstructive Sleep Apnea-Hypopnea Syndrome, moderate, with the patient continuing to do well on nasal CPAP therapy. She has excellent compliance and significant clinical improvement. The current pressure appears effective and comfortable. She is planning to have a bariatric surgery. PLAN: 1. Continue with autoCPAP set at 12 16 cmH2O. 2. Try to lose weight. Bariatric surgery appears indicated. 3. Repeat the in-laboratory polysomnography before surgery (her last sleep study was 9 years ago). 4. Return for follow up in a year or earlier if there is any problem. Counseling Topics: Weight control Follow up with Sleep Care in: 1 year Visit Type: Telehealth Video Video Type: June Patient Location: Home Location of Provider: Office Time Spent with Patient (minutes): 15 Provider Statement: I spent 100% of the Telehealth Video Call with the patient with greater than 50% spent counseling the patient and coordination of care.
== END 2022-05-22 16:27 | disposition home or self-care (01) ==
LOC: SC 16:26
PROVIDERS: ATTEND Internal Medicine Pulmonary Disease
DX: G47.33 Obstructive sleep apnea (adult) (pediatric) (principal); E66.01 Morbid (severe) obesity due to excess calories; Z68.41 Body mass index [BMI] 40.0-44.9, adult
CPT/HCPCS: 99212

== ENCOUNTER 2022-07-09 09:38 | Emergency (ER) | payer MEDICAID ==
[2022-07-09 10:13] LABS: BASOPHILS % (AUTO) 0.4 %; EOSINOPHILS # (AUTO) 0.2 10^3/uL (0.0-0.7); EOSINOPHILS % (AUTO) 1.9 %; HCT - HEMATOCRIT 44.3 % (37.0-47.0); HGB - HEMOGLOBIN 14.5 g/dL (12.0-16.0); LYMPHOCYTES # (AUTO) 2.5 10^3/uL (1.5-3.5); LYMPHOCYTES % (AUTO) 29.5 %; MEAN CORPUSCULAR HEMOGLOBIN 27.2 pg (27.0-31.0); MEAN CORPUSCULAR HGB CONC 32.7 g/dL (32.0-36.0); MEAN CORPUSCULAR VOLUME 83.1 fL (81.0-99.0); MEAN PLATELET VOLUME 9.8 fL (7.9-10.8); MONOCYTES # (AUTO) 0.7 10^3/uL (0.0-1.0); MONOCYTES % (AUTO) 7.6 %; NEUTROPHILS # (AUTO) 5.1 10^3/uL (1.5-6.6); NEUTROPHILS % (AUTO) 60.1 %; PLT - PLATELET COUNT 278 10^3/uL (130-450); RED BLOOD COUNT 5.33 10^6/uL (4.20-5.40); WHITE BLOOD COUNT 8.5 x10^3/uL (4.8-10.8)
--- NOTE | 2022-07-09 10:17 | XRAY Report ---
PROCEDURE: Chest 1 View X-Ray INDICATIONS: Chest Pain TECHNIQUE: One view of the chest was acquired. COMPARISON: 01/17/2017 plain film FINDINGS: Surgical changes and devices: None. Lungs and pleura: No pleural effusions or pneumothorax. Lungs are clear. Mediastinum: Mediastinal contours appear normal. Heart size is normal. Bones and chest wall: No suspicious bony lesions. Overlying soft tissues appear unremarkable. IMPRESSION: No acute process. Reviewed by: Delfin Son MD on 07/09/2022 10:15 AM PDT Approved by: Delfin Son MD on 07/09/2022 10:15 AM PDT Station ID: [id number]
[2022-07-09 10:32] LABS: ALBUMIN/GLOBULIN RATIO 1.3 (1.0-2.2); BILIRUBIN,TOTAL 0.6 mg/dL (0.2-1.0); CALCIUM 9.1 mg/dL (8.5-10.3); CREATININE 0.7 mg/dL (0.4-1.0); POTASSIUM 3.8 mmol/L (3.5-5.0); TOTAL PROTEIN 7.1 g/dL (6.7-8.2)
[2022-07-09] MEDS ORDERED: MAG HYDROX/AL HYDROX/SIMETH 30 ML UDC PO STA (10:35)
[2022-07-09] MEDS ORDERED: FAMOTIDINE 20 MG TABLET PO STA (10:35)
[2022-07-09] MEDS ORDERED: SUCRALFATE 1 GM/10 ML UDC PO STA (10:35)
--- NOTE | 2022-07-09 10:39 | ED Physician Documentation ---
PD HPI ABD PAIN - Stated complaint Stated Complaint: DIGESTION - Chief complaint Chief Complaint: Cardiac - History obtained from History obtained from: Patient - Additional information Additional information: Patient is a 47-year-old female, history of diabetes, who presents to the emergency department epigastric abdominal pain. This been ongoing for the past several days. Decreased appetite. No vomiting. No diarrhea or constipation. Worse with eating and drinking, nothing seems to make it better. She states that she took an gas x without relief. Patient has had a cholecystectomy in the past. No difficulty breathing. She states that it "feels like something is flipped". Review of Systems Constitutional: denies: Fever, Chills GI: denies: Vomiting, Diarrhea Skin: denies: Rash Musculoskeletal: denies: Neck pain, Back pain Neurologic: denies: Headache PD PAST MEDICAL HISTORY - Past Medical History Past Medical History: Yes Cardiovascular: Hypertension, Other Respiratory: Asthma, Sleep apnea, CPAP use Neuro: Migraines Endocrine/Autoimmune: None GI: GERD, Other [employer]: Endometriosis : None HEENT: None Psych: Depression, Anxiety Musculoskeletal: Chronic back pain Derm: None - Past Surgical History Past Surgical History: Yes General: Cholecystectomy Ortho: ACL reconstruction /[employer]: section, Dilation and currettage, Tubal ligation, Hysterectomy, Oophrectomy HEENT: Tonsil/Adenoidectomy - Present Medications Home Medications: Ambulatory Orders Medication Instructions Recorded Confirmed Cetirizine [ZyrTEC] 10 mg DAILY 01/17/17 04/24/22 Trazodone HCl 100 mg PO QPM PRN 12/10/17 04/24/22 Albuterol Sulfate [Proair Hfa 3 - 4 puffs INH Q4H PRN #1 gm 11/23/20 Inhaler] ALPRAZolam [Xanax] 1 tab PO DAILY PRN 04/24/22 04/24/22 Baclofen [Lioresal] 10 mg PO DAILY 04/24/22 04/24/22 Eszopiclone [Lunesta] 2 mg PO QPM 04/24/22 04/24/22 Gabapentin [Neurontin] 300 mg PO TID 04/24/22 04/24/22 Hydrocortisone Supp [Anusol-Hc] 25 mg RC QPM PRN #15 supp 04/24/22 Liraglutide [Victoza 2-Isaac] 1.2 mg SUBQ DAILY 04/24/22 04/24/22 Sennosides/Docusate Sodium 1 each PO QDAC PRN #30 tablet 04/24/22 [Senna-Docusate Sodium Tablet] polyethylene glycoL 3350 [Miralax] 17 gm PO DAILY #15 packet 04/24/22 traMADol [Ultram] 50 mg PO BID PRN 04/24/22 04/24/22 - Allergies Allergies/Adverse Reactions: Allergies Allergy/AdvReac Type Severity Reaction Status Date / Time cefaclor [From Ceclor] Allergy Severe Edema Verified 07/09/22 09:49 methylergonovine maleate * Allergy Severe Respiratory Verified 07/09/22 09:49 [From Methergine] Latex, Natural Rubber Allergy Hives Verified 07/09/22 09:49 - Social History Does the pt smoke?: No Smoking Status: Never smoker Does the pt drink ETOH?: Yes Does the pt have substance abuse?: Yes - Immunizations Immunizations are current?: Yes - POLST Patient has POLST: No POLST Status: Full Code PD ED PE NORMAL - Vitals Vital signs reviewed: Yes - General General: Alert and oriented X 3, No acute distress - HEENT HEENT: Moist mucous membranes - Neck Neck: Supple, no meningeal sign - Cardiac Cardiac: RRR, Strong equal pulses - Respiratory Respiratory: No respiratory distress, Clear bilaterally - Abdomen Abdomen: Soft, Non distended, Other (TTP epigastric, no peritoneal signs) - Back Back: No CVA TTP, No spinal TTP - Derm Derm: Warm and dry, No rash - Neuro Neuro: Alert and oriented X 3 Results - Vitals Vitals: Vital Signs - 24 hr 07/09/22 07/09/22 07/09/22 09:45 10:06 11:37 Temperature 36.6 C Heart Rate 94 84 68 Respiratory 18 20 16 Rate Blood Pressure 138/92 H 132/68 H O2 Saturation 95 96 100 Oxygen O2 Source Room air - EKG (time done) 0947 EKG releavant findings:: EKG personally interpreted by author of this note. Relevant findings are: Rate: Rate (enter#) (80) Rhythm: NSR [place]: LAD Intervals: Normal [place] QRS: LVH Ischemia: Other (downsloping ST I, aVL, new from 04/2022) - Labs Labs: Laboratory Tests 07/09/22 07/09/22 07/09/22 10:03 10:03 10:03 WBC 8.5 RBC 5.33 Hgb 14.5 Hct 44.3 MCV 83.1 MCH 27.2 MCHC 32.7 RDW 13.0 Plt Count 278 MPV 9.8 Neut # (Auto) 5.1 Lymph # (Auto) 2.5 [place] # (Auto) 0.7 Eos # (Auto) 0.2 Baso # (Auto) 0.0 Absolute Nucleated RBC 0.00 Nucleated RBC % 0.0 Sodium 139 Potassium 3.8 Chloride 109 Carbon Dioxide 23 Anion Gap 7.0 BUN 8 Creatinine 0.7 Estimated GFR (MDRD) 89 Glucose 138 H Calcium 9.1 Total Bilirubin 0.6 AST 21 ALT 32 Alkaline Phosphatase 41 L Troponin I High Sens 2.4 Total Protein 7.1 Albumin 4.0 Globulin 3.1 Albumin/Globulin Ratio 1.3 Lipase 26 - Rads (name of study) cxr Relevant Findings:: Final report received, See rad report (no acute disease) PD Medical Decision Making - ED course Complexity details: reviewed results, re-evaluated patient, considered differential (No ST elevation MS, no aortic dissection, no PE, no tension pneumothorax, no aortic aneurysm), d/w patient ED course: 39-year-old female with epigastric abdominal pain. Her chest x-ray does not show any acute abnormalities. Her CBC is normal. Chemistry does not show any significant abnormalities. EKG does not show any significant abnormalities. High-sensitivity troponin is negative. Patient feels mildly better after a GI cocktail. Patient declines a CT scan at this time. Patient will follow-up with her doctor for further care. Patient counseled regarding signs and symptoms for which I believe and urgent re-evaluation would be necessary. Patient with good understanding of and agreement to plan and is comfortable going home at this time This document was made in part using voice recognition software. While efforts are made to proofread this document, sound alike and grammatical errors may occur. Departure - Departure Disposition: 01 Home, Self Care Clinical Impression: Epigastric pain Condition: Good Instructions: ED Abdominal Pain Female Non-Specific Abdominal Pain Follow-Up: BEV RIVERA DO [Primary Care Provider] - Within 1 week Comments: The cause of your symptoms is unclear today. Your heart test did not show any acute findings. Your laboratory testing does not show any acute abnormalities. Please follow-up with your doctor for further care. Please return if you worsen. Discharge Date/Time: 07/09/22 11:42
[2022-07-09 11:38] VITALS: BP 132/68
== END 2022-07-09 11:42 | disposition home or self-care (01) ==
LOC: ED 09:38
DX: R10.13 Epigastric pain (principal); I10 Essential (primary) hypertension; Z79.899 Other long term (current) drug therapy
CPT/HCPCS: 36415; 71045; 80053; 83690; 84484; 85025; 93005; 99283; 99284; A9270